=== PATIENT | male | born 1975 | race Caucasian/White ===

== ENCOUNTER 2020-06-18 15:39 | Inpatient (IN) ==
[2020-06-18] MEDS ORDERED: IOPAMIDOL 100 ML BOTTLE IV ONE (15:40)
[2020-06-18] MEDS ORDERED: HYDROmorphone 1 MG/ML SYRINGE IV ONE (16:32)
[2020-06-18] MEDS ORDERED: ONDANSETRON 4 MG/2 ML VIAL IV ONE (16:32)
[2020-06-18] MEDS ORDERED: 0.9 % SODIUM CHLORIDE 1,000 ML IV ONE (16:32)
[2020-06-18] MEDS ORDERED: POTASSIUM CHLORIDE 40 MEQ in DEXTROSE 5% IN WATER 500 ML IV ONE (16:56)
--- NOTE | 2020-06-18 17:01 | Emergency Department Note ---
Abdominal Pain HPI General Chief Complaint: Abdominal Pain Stated Complaint: N/V/D abdominal pain Time Seen by Provider: 06/18/20 15:47 Source: patient Mode of arrival: ambulatory Limitations: no limitations History of Present Illness HPI Narrative: Narrative: 44-year-old male presents with abdominal pain and intractable nausea and vomiting. Onset 3 days ago. He was seen in the ER at [facility] yesterday. They hydrated and given some nausea medication and diagnosed him with gastroenteritis. He returned to the ER today complaining of increased abdominal pain and continued nausea and vomiting. They did do lab work there this afternoon at about 1335 which showed a white blood cell count of 2.9, hemoglobin of 13.4, hematocrit of 40.4, creatinine 1.06, sodium 136, potassium 3.19 and otherwise unremarkable. They did not have CT available and so he was transferred here to our facility for further work-up in the emergency department. He denies fever or chills. States when he was treated yesterday he was better for a few hours and then got worse again. Decreased appetite which she relates to the pain in his abdomen. He denies having any abdominal surgeries in the past. States 8 to 10 years ago he did have a bowel obstruction and he was admitted to the hospital at [facility] but it resolved on its own with rest. Has not had any problems since then. No ill contacts. No cough or cold symptoms. Denies any abdominal surgeries in the past. States he is on Eliquis, low-dose for prior history of atrial fibrillation. He had an ablation couple years ago and has had no subsequent episodes of atrial fib however they wanted to keep him on the low-dose Eliquis. He is not sure what the dosing is and we are trying to get medication records and further past medical history from the clinic out in [place]. Related Data Home Medications Medication Instructions Recorded Confirmed albuterol sulfate 90 mcg/actuation 1 inh INHALATION .UNKNOWN g 10/08/19 06/09/20 aerosol inhaler ascorbic acid (vitamin C) 1,000 mg 1 g PO .UNKNOWN tab 10/08/19 06/09/20 tablet diclofenac sodium 75 mg 75 mg PO .UNKNOWN tab 10/08/19 06/09/20 tablet,delayed release albuterol sulfate 90 mcg/actuation 2 puff INHALATION Q6H PRN 02/05/20 06/09/20 aerosol inhaler amlodipine 2.5 mg tablet 2.5 mg PO QDAY tab 02/05/20 06/09/20 apixaban 5 mg tablet 5 mg PO BID tab 02/05/20 06/09/20 flaxseed oil 1,000 mg capsule See Rx Instructions PO QDAY 02/05/20 06/09/20 fluoxetine 40 mg capsule 80 mg PO QDAY cap 02/05/20 06/09/20 folic acid 1 mg tablet 1 mg PO QDAY tab 02/05/20 06/09/20 lisinopril 20 mg tablet 20 mg PO QPM tab 02/05/20 06/09/20 magnesium oxide 400 mg PO QDAY cap 02/05/20 06/09/20 montelukast 10 mg tablet 10 mg PO QPM tab 02/05/20 06/09/20 oxcarbazepine 300 mg tablet 600 mg PO BID tab 02/05/20 06/09/20 simvastatin 40 mg tablet 40 mg PO QPM tab 02/05/20 06/09/20 tamsulosin 0.4 mg capsule 0.4 mg PO QDAY cap 02/05/20 06/09/20 ferrous sulfate 325 mg (65 mg 325 mg PO QDAY 03/07/20 06/09/20 iron) tablet Previous Rx's Medication Instructions Recorded meloxicam 15 mg tablet 15 mg PO QDAY #30 tab 04/06/20 cyclobenzaprine 10 mg tablet 10 mg PO TID PRN #90 tab MDD 3 06/08/20 naloxone 4 mg/actuation nasal spray 1 spray INTRANASAL Q2-3M PRN #2 06/08/20 each oxycodone-acetaminophen 10 mg-325 1 tab PO Q4-6H PRN #120 tab MDD 4 06/08/20 mg tablet Allergies Allergy/AdvReac Type Severity Reaction Status Date / Time gluten AdvReac Mild Diarrhea Verified 06/09/20 10:09 iodine AdvReac Mild flushing Verified 06/09/20 10:09 methadone AdvReac Mild ITCHING, Verified 06/09/20 10:09 Tachycardia morphine AdvReac Mild N/V Verified 06/09/20 10:09 Review of Systems ROS ROS Narrative: Narrative: All systems ED: reviewed and negative except as stated. PFSH Narrative Patient History Narrative: Narrative: Medical/Surgical/Family History All Active Problems (Updated 06/18/20 @ 17:06 by AUDREY Givens) Small bowel obstruction (Acute) Abdominal pain (Acute) Vomiting (Acute) Obstructive sleep apnea (Acute) Lumbar stenosis with neurogenic claudication (Chronic) History of inguinal hernia repair (Acute 06/17/86) History of nasal surgery (Chronic 11/16/19) History of left knee surgery (Chronic) History of bilateral carpal tunnel release (Chronic) History of arthroscopy of shoulder (Chronic) Anxiety (Chronic) intermodal customer service (current) use of opiate analgesic (Chronic) History of kidney stones (Chronic) Chronic diarrhea (Chronic) Vitamin D deficiency (Chronic) Thalassemia (Chronic) Low back pain (Chronic) Paroxysmal atrial fibrillation (Chronic) History of myocardial infarction (Chronic) Other seizures (Acute) Spinal stenosis, lumbar region without neurogenic claudication (Acute) Obesity, unspecified (Acute) Opioid dependence (Acute) Chronic pain (Acute) Asthma (Chronic) Hypertension (Chronic) Chronic atrial fibrillation (Chronic) Sleep apnea (Chronic) Hyperlipidemia (Chronic) Heart disease (Chronic) Blindness of left eye (Chronic) Bipolar disorder (Chronic) Metabolic syndrome (Chronic) Macular degeneration (Chronic) Osteoarthritis (Chronic) Morbid obesity (Chronic) Bronchitis (Chronic) Headache (Chronic) Radiculopathy, lumbar region (Chronic) Medical History (Updated 06/18/20 @ 17:06 by AUDREY Gviens) Anxiety (Chronic) Asthma (Chronic) Atrial fibrillation (Acute) Bipolar disorder (Chronic) Blindness of left eye (Chronic) Bronchitis (Chronic) Chronic atrial fibrillation (Chronic) Chronic diarrhea (Chronic) Chronic pain (Acute) Headache (Chronic) Heart disease (Chronic) History of kidney stones (Chronic) History of myocardial infarction (Chronic) Hyperlipidemia (Chronic) Hypertension (Chronic) detention (current) use of opiate analgesic (Chronic) Low back pain (Chronic) Lumbar stenosis with neurogenic claudication (Chronic) Macular degeneration (Chronic) Metabolic syndrome (Chronic) Morbid obesity (Chronic) Obesity, unspecified (Acute) Obstructive sleep apnea (Acute) Opioid dependence (Acute) For pain control of benign origin Osteoarthritis (Chronic) Other seizures (Acute) Paroxysmal atrial fibrillation (Chronic) Radiculopathy, lumbar region (Chronic) Sleep apnea (Chronic) Spinal stenosis, lumbar region without neurogenic claudication (Acute) Thalassemia (Chronic) Vitamin D deficiency (Chronic) Surgical History History of arthroscopy of shoulder (Chronic) History of bilateral carpal tunnel release (Chronic) History of inguinal hernia repair (Acute 06/17/86) History of left knee surgery (Chronic) History of nasal surgery (Chronic 11/16/19) cysts removed History of surgery (Chronic) LESI #3 L4-5 w/sed 08/19/2019 LESI #2 Rt. L4-5 w/sed 06/23/2019 LESI #1 L4-5 w/sed 04/20/2019 Family History Grandmother Diabetes mellitus Maternal Substance abuse Maternal and paternal Mother Hypertensive disorder COPD (chronic obstructive pulmonary disease) Suicide Mental disorder Grandfather Diabetes mellitus Maternal Hypertensive disorder Paternal Substance abuse Maternal and paternal Hyperlipidemia Maternal and paternal Cerebrovascular accident Maternal and paternal Father Substance abuse Mental disorder Brother Substance abuse Mental disorder Sister Mental disorder Social History Smoking Status: Former smoker Alcohol Intake Frequency: does not drink Substance Use: does not use Exam Narrative Narrative: Narrative: General Limitations: no limitations General appearance: Present alert and obese Head Head: Present atraumatic and normocephalic Eye Eye: Present normal appearance; Absent conjunctival injection ENT ENT: Present mucous membranes moist Neck Neck: Present normal inspection and trachea midline; Absent lymphadenopathy Chest Chest: Present symmetric chest wall rise Respiratory Respiratory: Present normal lung sounds bilaterally; Absent respiratory distress, rales/crackles, wheezes, stridor and accessory muscle use Adbominal Abdominal: Present soft, distention (large, round, distended), tenderness (difuse) and hypoactive bowel sounds; Absent guarding and rebound Neurological Neurological: Present alert and oriented X3 Psychiatric Psychiatric: Present normal affect and normal mood Skin Skin: Present warm (WNL), dry, intact and normal color Course Course Course Narrative: Please see labs from [facility] from today. At [address] I did speak with Dr[address] Addison Shetty surgeon on-call due to small bowel obstruction, evident on CT.. He is excepting this patient. He would like me to put in ED transition orders which I will do. We he would also like an NG placed and 40 mEq of potassium IV which we have ordered. Patient is agreeable. Vital Signs Vital signs: Vital Signs Temperature 98 F 06/18/20 15:40 Pulse Rate 106 H 06/18/20 15:40 Respiratory Rate 18 06/18/20 15:40 Blood Pressure 157/86 06/18/20 15:40 Pulse Oximetry (%) 100 06/18/20 15:40 Temperature 98 F 06/18/20 15:40 Pulse Rate 106 H 06/18/20 15:40 Respiratory Rate 18 06/18/20 15:40 Blood Pressure 157/86 06/18/20 15:40 Pulse Oximetry (%) 100 06/18/20 15:40 MDM MDM Narrative Medical decision making narrative: Narrative: Lab Data Lab results reviewed: Yes I reviewed the patient's lab results. 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: Yes Clinical Impression: Small bowel obstruction, Abdominal pain, Vomiting Patient Disposition: Xfer As Inpt (TS) Condition: Fair Follow up with: Desean Bell MD [Primary Care Provider] - Noe Xie MD [Physician] - Prescriptions: No Action meloxicam 15 mg tablet 15 mg PO QDAY Qty: 30 RF: 2 diclofenac sodium 75 mg tablet,delayed release (DR/EC) 75 mg PO .UNKNOWN RF: 0 albuterol sulfate [Ventolin HFA] 90 mcg/actuation HFA aerosol inhaler 1 inh INHALATION .UNKNOWN RF: 0 ascorbic acid (vitamin C) 1,000 mg tablet 1 g PO .UNKNOWN RF: 0 amlodipine 2.5 mg tablet 2.5 mg PO QDAY RF: 0 Eliquis 5 mg tablet 5 mg PO BID RF: 0 fluoxetine [Prozac] 40 mg capsule 80 mg PO QDAY RF: 0 folic acid 1 mg tablet 1 mg PO QDAY RF: 0 lisinopril 20 mg tablet 20 mg PO QPM RF: 0 magnesium oxide 400 mg magnesium capsule 400 mg PO QDAY RF: 0 montelukast 10 mg tablet 10 mg PO QPM RF: 0 oxcarbazepine 300 mg tablet 600 mg PO BID RF: 0 simvastatin 40 mg tablet 40 mg PO QPM RF: 0 tamsulosin [Flomax] 0.4 mg capsule 0.4 mg PO QDAY RF: 0 flaxseed oil [Oxford-3 Flaxseed Oil] 1,000 mg capsule See Rx Instructions PO QDAY RF: 0 albuterol sulfate [Ventolin HFA] 90 mcg/actuation HFA aerosol inhaler 2 puff INHALATION Q6H PRN (Reason: Wheezing) RF: 0 oxycodone-acetaminophen 10-325 mg tablet 1 tab PO Q4-6H MDD 4 PRN (Reason: pain) Qty: 120 RF: 0 cyclobenzaprine 10 mg tablet 10 mg PO TID MDD 3 PRN (Reason: muscle spasm) Qty: 90 RF: 2 naloxone 4 mg/actuation spray,non-aerosol 1 spray INTRANASAL Q2-3M PRN (Reason: opioid overdose) Qty: 2 RF: 0 ferrous sulfate [FeroSul] 325 mg (65 mg iron) tablet 325 mg PO QDAY RF: 0
[2020-06-18] MEDS ORDERED: PROMETHAZINE 25 MG/ML VIAL IM PRN ×2 (17:08→23:57)
[2020-06-18] MEDS ORDERED: ONDANSETRON 4 MG/2 ML VIAL IV PRN ×2 (17:08→23:57)
[2020-06-18] MEDS ORDERED: POTASSIUM CHLORIDE 20 MEQ/10 ML VIAL IV ONE (17:13)
[2020-06-18] MEDS: HYDROmorphone 1 MG/ML SYRINGE IV PRN ×2 (18:09→20:34)
[2020-06-18] MEDS ORDERED: cefTRIAXone 2 GM in DEXTROSE 5% IN WATER 50 ML IV ONE (20:40)
[2020-06-18] MEDS ORDERED: metroNIDAZOLE 500 MG/100 ML BAG IV ONE ×2 (20:42→20:57)
[2020-06-18] MEDS ORDERED: ACETAMINOPHEN 1,000 MG/100 ML BAG IV ONE (20:42)
--- NOTE | 2020-06-18 20:46 | General Surg History&Physical ---
HPI History of Present Illness Patient information: Note initiated : 06/18/20 at 8:44 pm Service Date, if different from initiated Date: [] Patient: Phuc Calixto 44 y/o M admitted on 06/18/20 for N/V/D abdominal pain. Chief Complaint: abd pain History of present illness: 44 yo man with chronic pain and BMI 44 s/p laproscopic umbilical hernia repair and open R inguinal repair with hx of afib s/p ablation on apixaban presents with SBO. Was in usual state of health when started to have nausea and vomiting 2 days ago. Initially with associated diarrhea. The diarrhea has resolved but today with marked and progressive pain. Seen at OSH where WBC ominously low at 2.9 transfered for imaging. In our ED NGT placed with 2L of bilious output. CT showed dialated loops or bowel with mid jejunal transition point deep in abdomen near level of umbilicus. Upon my exam pt in marked pain, unable to get comfortable. Denies episodes of pain similar to this. last took apixaban 48hrs ago Constitutional Constitutional: Present snoring EENT Nose, mouth and throat: Present dry mouth Cardiovascular Cardiovascular: Present irregular heart rhythm Respiratory Respiratory: Absent cough Gastrointestinal Gastrointestinal: Present abdominal pain Psychiatric Psychiatric: Absent visual hallucinations Endocrine Endocrine: Absent polyuria Hematologic/Lymphatic Hematologic/Lymphatic: Absent easy bleeding PFSH PFSH All Active Problems (Updated 06/18/20 @ 21:13 by Noe Xie MD) Small bowel obstruction (Acute) Abdominal pain (Acute) Vomiting (Acute) Obstructive sleep apnea (Acute) Lumbar stenosis with neurogenic claudication (Chronic) History of inguinal hernia repair (Acute 06/17/86) History of nasal surgery (Chronic 11/16/19) History of left knee surgery (Chronic) History of bilateral carpal tunnel release (Chronic) History of arthroscopy of shoulder (Chronic) Anxiety (Chronic) snf (current) use of opiate analgesic (Chronic) History of kidney stones (Chronic) Chronic diarrhea (Chronic) Vitamin D deficiency (Chronic) Thalassemia (Chronic) Low back pain (Chronic) Paroxysmal atrial fibrillation (Chronic) History of myocardial infarction (Chronic) Other seizures (Acute) Spinal stenosis, lumbar region without neurogenic claudication (Acute) Obesity, unspecified (Acute) Opioid dependence (Acute) Chronic pain (Acute) Asthma (Chronic) Hypertension (Chronic) Chronic atrial fibrillation (Chronic) Sleep apnea (Chronic) Hyperlipidemia (Chronic) Heart disease (Chronic) Blindness of left eye (Chronic) Bipolar disorder (Chronic) Metabolic syndrome (Chronic) Macular degeneration (Chronic) Osteoarthritis (Chronic) Morbid obesity (Chronic) Bronchitis (Chronic) Headache (Chronic) Radiculopathy, lumbar region (Chronic) Medical History (Updated 06/18/20 @ 21:13 by Noe Xie MD) Anxiety (Chronic) Asthma (Chronic) Atrial fibrillation (Acute) Bipolar disorder (Chronic) Blindness of left eye (Chronic) Bronchitis (Chronic) Chronic atrial fibrillation (Chronic) Chronic diarrhea (Chronic) Chronic pain (Acute) Headache (Chronic) Heart disease (Chronic) History of kidney stones (Chronic) History of myocardial infarction (Chronic) Hyperlipidemia (Chronic) Hypertension (Chronic) snf (current) use of opiate analgesic (Chronic) Low back pain (Chronic) Lumbar stenosis with neurogenic claudication (Chronic) Macular degeneration (Chronic) Metabolic syndrome (Chronic) Morbid obesity (Chronic) Obesity, unspecified (Acute) Obstructive sleep apnea (Acute) Opioid dependence (Acute) For pain control of benign origin Osteoarthritis (Chronic) Other seizures (Acute) Paroxysmal atrial fibrillation (Chronic) Radiculopathy, lumbar region (Chronic) Sleep apnea (Chronic) Spinal stenosis, lumbar region without neurogenic claudication (Acute) Thalassemia (Chronic) Vitamin D deficiency (Chronic) Surgical History History of arthroscopy of shoulder (Chronic) History of bilateral carpal tunnel release (Chronic) History of inguinal hernia repair (Acute 06/17/86) History of left knee surgery (Chronic) History of nasal surgery (Chronic 11/16/19) cysts removed History of surgery (Chronic) LESI #3 L4-5 w/sed 08/19/2019 LESI #2 Rt. L4-5 w/sed 06/23/2019 LESI #1 L4-5 w/sed 04/20/2019 Family History Grandmother Diabetes mellitus Maternal Substance abuse Maternal and paternal Mother Hypertensive disorder COPD (chronic obstructive pulmonary disease) Suicide Mental disorder Grandfather Diabetes mellitus Maternal Hypertensive disorder Paternal Substance abuse Maternal and paternal Hyperlipidemia Maternal and paternal Cerebrovascular accident Maternal and paternal Father Substance abuse Mental disorder Brother Substance abuse Mental disorder Sister Mental disorder Social History marital status: unknown smoking status: Former smoker smoking status stop date: 06/17/02 alcohol intake frequency: does not drink substance use type: does not use MEDS/ALLERGIES Home Medications and Allergies Home Medications Medication Instructions Recorded Confirmed Type albuterol sulfate 90 mcg/actuation 1 inh INHALATION .UNKNOWN g 10/08/19 06/18/20 History aerosol inhaler ascorbic acid (vitamin C) 1,000 mg 1 g PO DAILY tab 10/08/19 06/18/20 History tablet diclofenac sodium 75 mg 75 mg PO .UNKNOWN tab 10/08/19 06/18/20 History tablet,delayed release albuterol sulfate 90 mcg/actuation 2 puff INHALATION Q6H PRN 02/05/20 06/18/20 History aerosol inhaler amlodipine 2.5 mg tablet 2.5 mg PO QDAY tab 02/05/20 06/18/20 History apixaban 5 mg tablet 5 mg PO BID tab 02/05/20 06/18/20 History flaxseed oil 1,000 mg capsule See Rx Instructions PO QDAY 02/05/20 06/18/20 History fluoxetine 40 mg capsule 80 mg PO QDAY cap 02/05/20 06/18/20 History folic acid 1 mg tablet 1 mg PO QDAY tab 02/05/20 06/18/20 History lisinopril 20 mg tablet 20 mg PO QPM tab 02/05/20 06/18/20 History magnesium oxide 400 mg PO QDAY cap 02/05/20 06/18/20 History montelukast 10 mg tablet 10 mg PO QPM tab 02/05/20 06/18/20 History oxcarbazepine 300 mg tablet 600 mg PO BID tab 02/05/20 06/18/20 History simvastatin 40 mg tablet 40 mg PO QPM tab 02/05/20 06/18/20 History tamsulosin 0.4 mg capsule 0.4 mg PO QDAY cap 02/05/20 06/18/20 History ferrous sulfate 325 mg (65 mg 325 mg PO QDAY 03/07/20 06/18/20 History iron) tablet meloxicam 15 mg tablet 15 mg PO QDAY #30 tab 10/21/20 01/02/21 Rx cyclobenzaprine 10 mg tablet 10 mg PO TID PRN #90 tab MDD 3 06/08/20 06/18/20 Rx naloxone 4 mg/actuation nasal spray 1 spray INTRANASAL Q2-3M PRN #2 06/08/20 06/18/20 Rx each oxycodone-acetaminophen 10 mg-325 1 tab PO Q4-6H PRN #120 tab MDD 4 06/08/20 06/18/20 Rx mg tablet Allergies Allergy/AdvReac Type Severity Reaction Status Date / Time gluten AdvReac Mild Diarrhea Verified 06/18/20 19:29 iodine AdvReac Mild flushing Verified 06/18/20 19:29 methadone AdvReac Mild ITCHING, Verified 06/18/20 19:29 Tachycardia morphine AdvReac Mild N/V Verified 06/18/20 19:29 Physical Examination Vital Signs Vital signs: Temp Pulse Resp BP Pulse Ox 36.6 C 114 H 37 H 150/86 94 06/18/20 18:51 06/18/20 18:16 06/18/20 18:51 06/18/20 18:16 06/18/20 18:51 General physical appearance General physical exam: other (Looks in significant pain, grimicing, elevated respiratory rate. MMM dry, NGT in place draining bilious material. no LAD, LcTAB, RRR no MGR, abd rotund markedly distended, tympanitic, no BS, markedly tender, in epigasrium and periumbilial area. + bed shake test, + reflexive guarding. ) Results Labs Labs: All other labs normal. A/P Assessment and plan (1) Small bowel obstruction: Status: Acute Comment: 44 yo man with 2 days of SBO and now with acute abdomen in setting of lymphopenia and elevated RR diagnostic of sepsis. Source intraabdominal. Plan: Urgent exploratory laparotomy Give firm abdomen, distended bowel and large girth - I do not think there is domain for laperoscopy Possible SBR Strong consideration of mesh onlay for hernia prophylaxis depending on details of case. Risk of bleeding, infection, injury to structures, hernia formation, mesh infection all discussed. Pt is in marked pain and quite eager to go to surgery. Noe Xie MD Surgery Time Spent With Patient Time: Total time spent is greater than 50% in coordination of care (as docum ented) at patient's floor/unit and/or counseling patient:
[2020-06-18] MEDS ORDERED: cefTRIAXone 1 GM VIAL ONE (20:56)
[2020-06-18] MEDS ORDERED: 0.9 % SODIUM CHLORIDE 250 ML IV SCH (21:00)
[2020-06-18] MEDS ORDERED: SUGAMMADEX SODIUM 200 MG/2 ML VIAL IV ONE (22:10)
[2020-06-18] MEDS ORDERED: HYDROmorphone* 2 MG/ML VIAL ONE (22:10)
[2020-06-18] MEDS ORDERED: LIDOCAINE HCL/PF 100 MG/5 ML SYRINGE IV ONE (22:10)
[2020-06-18] MEDS ORDERED: SUCCINYLCHOLINE 20 MG/ML ML IV ONE (22:10)
[2020-06-18] MEDS ORDERED: PHENYLEPHRINE 10 MG/ML VIAL ONE (22:10)
[2020-06-18] MEDS ORDERED: ROCURONIUM 10 MG/ML ML IV ONE (22:10)
[2020-06-18] MEDS ORDERED: DEXAMETHASONE 10 MG/ML VIAL ONE (22:10)
[2020-06-18] MEDS ORDERED: ONDANSETRON 4 MG/2 ML VIAL ONE (22:10)
[2020-06-18] MEDS ORDERED: PROPOFOL 200 MG/20 ML VIAL IV ONE (22:10)
[2020-06-18] MEDS ORDERED: fentaNYL 250 MCG/5 ML VIAL IV ONE (22:10)
[2020-06-18] MEDS ORDERED: KETAMINE 100 MG/ML ML ONE (22:10)
[2020-06-18] MEDS ORDERED: VANCOMYCIN 1 GM VIAL TOPICAL SCH (23:45)
[2020-06-18] MEDS ORDERED: LACTATED RINGERS 1,000 ML IV SCH (23:45)
[2020-06-18] MEDS ORDERED: BUPIVACAINE W/EPI 0.25% 50 ML VIAL IJ ONE (23:56)
[2020-06-18] MEDS ORDERED: MEPERIDINE 50 MG/ML INJECTION IM PRN (23:57)
[2020-06-18] MEDS ORDERED: diphenhydrAMINE 50 MG/ML VIAL IV PRN (23:57)
[2020-06-18] MEDS ORDERED: KETOROLAC 30 MG/ML VIAL IV PRN (23:57)
[2020-06-18] MEDS ORDERED: PROMETHAZINE 25 MG/ML VIAL IV PRN (23:57)
[2020-06-18] MEDS ORDERED: NALOXONE HCL 0.4 MG/ML VIAL IV PRN (23:57)
[2020-06-18] MEDS ORDERED: HYDROmorphone 0.5 MG/0.5 ML SYRINGE IV PRN (23:57)
[2020-06-18] MEDS ORDERED: fentaNYL 100 MCG/2 ML VIAL IV PRN (23:57)
[2020-06-18] MEDS ORDERED: MEPERIDINE 25 MG/ML SYRINGE IV PRN (23:57)
[2020-06-18] MEDS ORDERED: IPRATROPIUM/ALBUTEROL 3 ML AMPUL.NEB NEB PRN (23:57)
[2020-06-18] MEDS ORDERED: LACTATED RINGERS 250 ML IV PRN (23:57)
--- NOTE | 2020-06-19 01:38 | Brief Operative Note ---
Brief Operative Note Date of procedure: 06/19/20 Pre-op diagnosis: acute abdomen, sepsis, small bowel obstruction Post-op diagnosis: same Procedure: 1) Diagnostic laperotomy 2) MIGUELITO 3) Placement of prophylactic mesh onlay Grafts/Implants: Yes Anesthesia: GETA Findings: 1)large dialated bowel with mid jejunal transition point 2)transition point associated with small adhesion 3)placement of 20x6cm strip of prophylactic mesh - onlay - heavyweight polypro bard mesh - due to abdominal obesity with BMI of 45. Complications: none Surgeon: Noe Xie Estimated blood loss (cc): 10 Specimens Removed/Pathology: none sent Condition: stable Disposition: PACU
[2020-06-19] MEDS ORDERED: ACETAMINOPHEN 160 MG/5 ML ORAL.SOL PO SCH (02:26)
[2020-06-19] MEDS ORDERED: PROMETHAZINE 50 MG/ML AMPUL IM PRN (02:26)
[2020-06-19] MEDS: LACTATED RINGERS 1,000 ML IV SCH ×2 (02:30→17:09)
[2020-06-19] MEDS: metroNIDAZOLE 500 MG/100 ML BAG IV SCH ×4 (03:07→22:35)
[2020-06-19] MEDS: GABAPENTIN 400 MG CAPSULE PO SCH ×3 (05:18→17:07)
[2020-06-19] MEDS: METHOCARBAMOL 500 MG TABLET PO SCH ×3 (05:19→17:07)
[2020-06-19] MEDS ORDERED: HEPARIN 5,000 UNIT/ML VIAL SQ SCH (06:00)
[2020-06-19] MEDS: HYDROmorphone 1 MG/ML SYRINGE IV PRN ×7 (06:30→20:51)
[2020-06-19] MEDS ORDERED: HYDROmorphone 1 MG/ML SYRINGE ONE (06:36)
[2020-06-19] MEDS: IPRATROPIUM/ALBUTEROL 3 ML AMPUL.NEB NEB SCH ×3 (07:23→19:15)
[2020-06-19] MEDS ORDERED: IPRATROPIUM/ALBUTEROL 3 ML AMPUL.NEB NEB ONE (07:26)
[2020-06-19 07:40] LABS: Blood Urea Nitrogen 17 mg/dL (6-20); Calcium 9.1 mg/dL (8.6-10.4); Carbon Dioxide 24 mmol/L (22-30); Chloride 102 mmol/L (96-108); Glomerular Filtration Rate 102; Glucose 124 mg/dL (70-105)
[2020-06-19 08:28] LABS: Basophils # (Auto) 0 K/mcL (0.00-0.20); Basophils % (Auto) 0 % (0.0-2.0); Eosinophils # (Auto) 0 K/mcL (0.00-0.70); Eosinophils % (Auto) 0 % (0.0-7.0); Hematocrit 40.5 % (41.0-55.0); Hemoglobin 12.7 g/dL (13.5-16.5); Lymphocytes # (Auto) 0.25 K/mcL (1.50-4.80); Lymphocytes % (Auto) 7.8 % (15.0-49.0); Mean Corpuscular HGB Conc 31.4 g/dL (31.0-36.0); Mean Platelet Volume 10.1 fL (7.4-10.4); Monocytes # (Auto) 0.56 K/mcL (0.10-0.90); Monocytes % (Auto) 17.4 % (1.0-12.0); Neutrophils % (Auto) 74.8 % (38.0-78.0); Platelet Count 259 K/mcL (140-440); RBC 5.33 M/mcL (4.50-5.90); Red Cell Distribution Width 16.2 % (11.5-14.5); WBC 3.2 K/mcL (4.5-11.0)
[2020-06-19] MEDS: ONDANSETRON 4 MG/2 ML VIAL IV PRN ×3 (08:37→20:36)
--- NOTE | 2020-06-19 09:03 | Cat Scan Report ---
History: Diffuse abdominal pain with nausea and vomiting TECHNIQUE: The patient was imaged lung intravenous contrast scanning during the portal venous phase from the diaphragm to the symphysis pubis. Sagittal and coronal reformats were created. The radiation exposure was limited using dose reduction technology. FINDINGS: The lung bases are clear and there is no pleural effusion. The heart size is normal. There is mild generalized fatty infiltration throughout the liver. No liver mass is present. The spleen is normal in size and homogeneous. The gallbladder and bile ducts are normal. There is no mass or inflammation the pancreas. The adrenals are normal and symmetric. There were a few nonobstructing calyceal stones in both kidneys. They measure up to 6 mm. There is no hydronephrosis. The renal cortex is normal in thickness without evidence of scar or inflammation. The ureters are decompressed. Urinary bladder is decompressed and there are no stones within the lumen. The stomach and proximal small intestine are abnormally distended. There are numerous air-fluid levels within the small intestine. The jejunum measures up to 5.8 cm in transverse dimension. The wall is not abnormally thickened. There is a gradual transition to normal caliber small bowel in the left mid pelvis. No mass, internal hernia or volvulus are seen in the region of transition, to explain the bowel obstruction. The ileum is decompressed. At the level of the ileocecal valve there are some low-attenuation solid tissue protruding into the lumen of the cecum. This is more likely fecal material or thick intestinal secretions rather than a tumor. If this were an obstructing tumor, the adjacent distal ileum should be dilated, which it is not. Distal to the cecum, the large intestine is decompressed and normal. The appendix is noninflamed. No ascites or free intra-abdominal air present. Aorta is normal in caliber. There are a few small plaques in the distal aorta. Celiac and superior mesenteric arteries and visualized portion of the inferior mesenteric artery are patent, without evidence of thrombosis. Bilateral fat-containing inguinal hernias are present. No other hernia is present. There is arthritis and disc degeneration in the thoracic and lumbar spine with the greatest degeneration at L5-S1. IMPRESSION: Small bowel obstruction in the mid abdomen of undetermined etiology. Kianna Glez was called with the results Interpreted and Authenticated by: Dequan Jones 06/19/20
[2020-06-19] MEDS: TAMSULOSIN 0.4 MG CAPSULE PO SCH (10:17)
[2020-06-19] MEDS: LACTOBACILLUS 1 CAPSULE PO SCH ×2 (10:17→20:20)
[2020-06-19] MEDS: POLYETHYLENE GLYCOL 3350 17 GM PACKET PO SCH (10:18)
[2020-06-19] MEDS: FLUoxetine HCL 20 MG CAPSULE PO SCH (10:18)
[2020-06-19] MEDS: Oxcarbazepine [Trileptal] 600 mg Tab PO SCH ×2 (10:18→20:21)
[2020-06-19] MEDS: CELECOXIB 200 MG CAPSULE PO SCH ×2 (10:30→20:20)
[2020-06-19] MEDS: LISINOPRIL 10 MG TABLET PO SCH (10:30)
[2020-06-19] MEDS: amLODIPine 5 MG TABLET PO SCH (10:30)
[2020-06-19] MEDS ORDERED: MAGNESIUM SULFATE 8.12 MEQ/2 ML VIAL IV ONE (10:40)
[2020-06-19] MEDS ORDERED: MAGNESIUM SULFATE 2 GM/50 ML BAG IV ONE (11:00)
--- NOTE | 2020-06-19 11:15 | General Surgery Progress Note ---
SUBJECTIVE Subjective Patient information: Note initiated : 06/19/20 at 11:08 am Service Date, if different from initiated Date: [] Patient: Phuc Calixto 44 y/o M admitted on 06/18/20 for N/V/D abdominal pain. Chief Complaint: SBO S: feeling substantially improved with pain after surgery, no longer in distress. moderate abdominal pain, No flatus, no bm, some burping. O: 38.1 123 142/85 96 on 2L NC UOP 1.8 L since surgery Looking much improved, comfortably, LCTAB Regular tacky, strong radial pulse NGT in place with dark bilious output. Rotund distended abdomen. tympanitic. Midly tender - improved over prior exam. No rebound neg bed shake, dressings with minimal strike through Periphery warm Jacinto with moderately dark clear yellow urine A/P 44 yo man POD0 after exlap for SBO with acute abdomen, single small adhesive band at transition point lysed. Prophylatic mesh placement as onlay. Now much improved. No bowel function yet. Plan: Multimodal pain regiment: APAP, methocarbamol, gabapentin, celecoxib, PRN hydromorphone - adiquate continue NGT on LWIS, OK to clamp for 1hr with meds Hm SSRI and bp meds Day 2/7 of abx for inital presentation of sepsis Probiotic FEN LR - 75, E - replete mag, NPO, meds with sips Proph: Miralax, Enox 40mg BID PT for gait training Noe Xie MD Surgery Constitutional Vitals: Vital Signs Temp Pulse Resp BP Pulse Ox 38.1 C H 123 H 18 142/85 96 06/19/20 07:16 06/19/20 07:27 06/19/20 07:27 06/19/20 07:16 06/19/20 07:25 Period Temp Pulse Resp BP Sys/George Pulse Ox Last 24 Hr 36.6 C-38.4 C 97-123 16-37 120-176/73-104 88-100 Intake and Output 06/18/20 06/19/20 06/19/20 21:59 05:59 13:59 Intake Total 217 5565 100 Output Total 2400 3400 375 Balance -2183 2165 -275 Weight 145.15 kg Intake & Output: Intake & Output 06/18/20 06/19/20 06/19/20 21:59 05:59 13:59 Intake Total 217 5565 100 Output Total 2400 3400 375 Balance -2183 2165 -275 Weight 145.15 kg Intake: IV 217 1565 100 Sodium Chloride 0.9% 1,000 ml @ 1000 Wide Open IV B[facility]US ONE Rx#: [id number] Lactated Ringers 1,000 ml @ 20 12 mls/hr IV .Q24H [facility] Rx#: [id number] Potassium Chloride 40 Meq In 217 303 Dextrose 5% in Water 500 ml @ 130 mls/hr IV ONCE ONE Rx#: [id number] Rocephin 2 gm In Dextrose 5% in 50 Water 50 ml @ 100 mls/hr IV ONCE ONE Rx#:[id number] Tube Feeding 0 0 0 IV - Manual Only 4000 Output: Gastric Drainage 2400 1600 0 Right Nare 2400 1600 0 Urine Catheter Amount 1800 Void Amount 375 Other: Meal Breakfast Percent of Meal Consumed NPO Urine Appearance Clear Clear Uretheral (Jacinto) Clear Clear Urine Color Dark Yellow Dark Yellow Uretheral (Jacinto) Dark Yellow Dark Yellow Urine Odor Normal A/P Time Spent With Patient Time: Total time spent is greater than 50% in coordination of care (as documented) at patient's floor/unit and/or counseling patient:
[2020-06-19] MEDS: cefTRIAXone 2 GM in DEXTROSE 5% IN WATER 50 ML IV SCH (11:35)
[2020-06-19] MEDS: ACETAMINOPHEN 160 MG/5 ML ORAL.SOL PO SCH ×2 (12:42→17:08)
[2020-06-19] MEDS: ENOXAPARIN 40 MG/0.4 ML SYRINGE SQ SCH (20:20)
[2020-06-19] MEDS: MONTELUKAST 10 MG TABLET PO SCH (20:20)
[2020-06-19] MEDS: SIMVASTATIN 40 MG TABLET PO SCH (20:20)
[2020-06-20] MEDS: HYDROmorphone 1 MG/ML SYRINGE IV PRN ×8 (00:05→22:19)
[2020-06-20] MEDS: GABAPENTIN 400 MG CAPSULE PO SCH ×4 (00:16→17:39)
[2020-06-20] MEDS: ACETAMINOPHEN 160 MG/5 ML ORAL.SOL PO SCH ×4 (00:16→18:31)
[2020-06-20] MEDS: METHOCARBAMOL 500 MG TABLET PO SCH ×4 (00:16→17:39)
[2020-06-20] MEDS: IPRATROPIUM/ALBUTEROL 3 ML AMPUL.NEB NEB SCH ×4 (01:15→19:03)
[2020-06-20] MEDS: metroNIDAZOLE 500 MG/100 ML BAG IV SCH ×3 (06:05→22:21)
[2020-06-20] MEDS: LACTATED RINGERS 1,000 ML IV SCH ×3 (06:05→22:20)
[2020-06-20 07:53] LABS: Blood Urea Nitrogen 15 mg/dL (6-20); Calcium 9.7 mg/dL (8.6-10.4); Carbon Dioxide 26 mmol/L (22-30); Chloride 101 mmol/L (96-108); Glomerular Filtration Rate 113; Glucose 100 mg/dL (70-105)
[2020-06-20 08:27] LABS: Basophils # (Auto) 0.01 K/mcL (0.00-0.20); Basophils % (Auto) 0.2 % (0.0-2.0); Eosinophils # (Auto) 0.02 K/mcL (0.00-0.70); Eosinophils % (Auto) 0.5 % (0.0-7.0); Hematocrit 39.8 % (41.0-55.0); Hemoglobin 12.3 g/dL (13.5-16.5); Lymphocytes # (Auto) 0.72 K/mcL (1.50-4.80); Lymphocytes % (Auto) 16.6 % (15.0-49.0); Mean Cell Volume 77.1 fL (80.0-100.0); Mean Corpuscular HGB Conc 30.9 g/dL (31.0-36.0); Monocytes # (Auto) 1.12 K/mcL (0.10-0.90); Monocytes % (Auto) 25.9 % (1.0-12.0); Neutrophils % (Auto) 56.8 % (38.0-78.0); Platelet Count 264 K/mcL (140-440); RBC 5.16 M/mcL (4.50-5.90); Red Cell Distribution Width 16.4 % (11.5-14.5); WBC 4.3 K/mcL (4.5-11.0)
[2020-06-20] MEDS: FLUoxetine HCL 20 MG CAPSULE PO SCH (09:12)
[2020-06-20] MEDS: cefTRIAXone 2 GM in DEXTROSE 5% IN WATER 50 ML IV SCH (09:12)
[2020-06-20] MEDS: POLYETHYLENE GLYCOL 3350 17 GM PACKET PO SCH (09:12)
[2020-06-20] MEDS: ENOXAPARIN 40 MG/0.4 ML SYRINGE SQ SCH ×2 (09:12→20:05)
[2020-06-20] MEDS: amLODIPine 5 MG TABLET PO SCH (09:13)
[2020-06-20] MEDS: LISINOPRIL 10 MG TABLET PO SCH (09:13)
[2020-06-20] MEDS: TAMSULOSIN 0.4 MG CAPSULE PO SCH (09:13)
[2020-06-20] MEDS: LACTOBACILLUS 1 CAPSULE PO SCH ×2 (09:13→20:04)
[2020-06-20] MEDS: CELECOXIB 200 MG CAPSULE PO SCH ×2 (09:13→20:04)
[2020-06-20] MEDS: Oxcarbazepine [Trileptal] 600 mg Tab PO SCH ×2 (09:14→20:04)
--- NOTE | 2020-06-20 10:24 | Operative Note ---
DATE OF OPERATION: 06/18/2020 PREOPERATIVE DIAGNOSIS: Acute abdomen sepsis and small-bowel obstruction. POSTOPERATIVE DIAGNOSIS: Acute abdomen sepsis and small-bowel obstruction. PROCEDURE: 1. Diagnostic laparotomy. 2. Lysis of adhesions. 3. Placement of prophylactic mesh onlay. SURGEON: Noe Xie M.D. AUTOMOTIVE LUBE TECHNICIAN: None. INDICATIONS: This is a 44-year-old man with a BMI of 45, who presented to the emergency department with 2 days of progressive abdominal pain, nausea, and vomiting. On CT scan, he was found to have a markedly dilated proximal jejunum with a transition point in the mid-jejunum and decompressed bowel distally. Clinically, he was notably tachypneic and was in acute distress with marked abdominal tenderness and an acute abdomen with a positive bed shake sign. In addition, he had a leukopenia and elevated heart and respiratory rate consistent with a diagnosis of sepsis. He was taken emergently to the operating room for exploration. FINDINGS: 1. Large dilated bowel with mid-jejunal transition point. 2. Transition point was associated with a small adhesion. 3. There was placement of a 20 x 6 cm strip of prophylactic mesh placed in an onlay position. This was heavy-weight polypropylene Bard mesh due to abdominal obesity, BMI of 45, as well as substantial distention from his bowel obstruction. ESTIMATED BLOOD LOSS: Approximately 10 mL. COMPLICATIONS: None. IMPLANTS: Heavy-weight polypropylene mesh as above. SPECIMENS: None. DESCRIPTION OF PROCEDURE: The patient was brought to the operating room. He was intubated without incident. He was prepped and draped in the usual sterile fashion. A timeout was completed. A vertical midline incision was carried through from about the senior living point between the umbilicus and the xiphoid process to the senior living point between the umbilicus and the pubic symphysis. This was carried down through the subcutaneous tissues to the linea alba. The linea alba was split just superior to the umbilicus. Two Yessi clamps were used to elevate it. The underlying peritoneum was divided between clamps using a Metzenbaum. A finger sweep confirmed the absence of local adhesive disease, and the fascia was opened in the midline along the length of the incision. There was free fluid in the abdomen which was mildly cloudy. There were markedly dilated bowel loops which were purpuric but viable. Moving to the inferior portion of the abdomen, I identified a loop of nondilated ileum. I began to [id number] run this bowel. The direction of travel ended up being proximal, and I identified the transition point between the quite dilated bowel. This appeared to be a tethered knuckle of bowel to deeper within the pelvis/abdomen. This adhesion appeared to fracture with just the simple lifting up of the bowel. I carefully inspected the bowel wall. There was a serosal tear in that area, and this was repaired using a total of five 2-0 silk lemberting sutures in a transverse fashion to not narrow the lumen. This was reinspected later in the case and found to be without issue. I continued to run the bowel then into the segment of significant dilation. There were no masses or stricturing identified in the area adjacent to the transition point. I then ran the bowel from [id number], moving back into the nondilated loops and all the way to the ileocecal valve. I confirmed the absence of a distal obstruction. I then moved from the ileocecal valve back through the bowel. At this point a significant amount of gas and liquid had moved distally past the site of previous obstruction. I then continued to run the bowel proximally all the way to the ligament of Treitz. There was no other disease noted. There was no other significant adhesive disease within the abdomen. At this point, the nasogastric tube was confirmed to be well placed in the stomach. The abdomen was washed out and suctioned dry. Hemostasis was confirmed. The greater omentum was draped over the viscera and we proceeded to close. Closure was done with the decision made for the placement of a prophylactic mesh in the onlay position. The plane just superficial to the fascia was opened several centimeters on either side of the midline and 4 cm superior and inferior to the fascial incision. At this point, transfascial sutures of 0 PDS were placed in a clock-face fashion, snapping the ends together for later fixation of the mesh. Next, the midline fascial defect was closed using a running 0 looped Maxon suture and multiple interrupted internal retention sutures of #1 Vicryl. Of note, at the level of the umbilicus we had cut through a mesh umbilical hernia repair in an underlay position. This was reapproximated using multiple interrupted 0 Prolene sutures. Once the fascia was well approximated, mesh, which had been soaking in vancomycin solution, was brought onto the field. This was fashioned in an approximately 6 cm wide strip, which was centered over the fascial incision. The transfascial PDS sutures were threaded through the holes in the mesh and tied in place, putting the mesh under some tension. Several additional 2-0 Vicryl mattressing sutures were used to hold the edges snug to the underlying fascia. Of note, at the superior edge of the wound the manufactured mesh appeared to be too short to cover the full length of the incision, so an additional piece of mesh was brought to cover the superior strip. Again, there was good overlap with 4 cm superiorly and 3 cm laterally. Where these two pieces of mesh met, there was a small overlap, and these were sutured together using an 0 Prolene stitch in a simple, continuous fashion with small bites. At this point, the mesh was well approximated on the superficial aspect of the underlying fascia. Hemostasis was confirmed. The area was irrigated with the vancomycin solution. Next, the deep subcutaneous layer was closed using a continuous Vicryl suture, and skin was closed using a layer of deep dermal sutures followed by daisy. Dressings were applied, followed by a wound binder. The patient was extubated without incident. [email or web address] Job ID: [id number] Doc ID: [id number] Noe Xie
--- NOTE | 2020-06-20 17:23 | General Surgery Progress Note ---
SUBJECTIVE Subjective Patient information: Note initiated : 06/20/20 at 5:19 pm Service Date, if different from initiated Date: [] Patient: Phuc Calixto 44 y/o M admitted on 06/18/20 for N/V/D abdominal pain. Chief Complaint: [] Principal diagnosis: small bowel obstruction Interval history: patient states that he feels much better. He still has significant nasogastric output. He has had flatus and denies nausea. His pain is adequately controlled and he states that he feels much better than preoperatively. Constitutional Vitals: Vital Signs Temp Pulse Resp BP Pulse Ox 97.4 F 95 H 20 130/84 98 06/20/20 11:40 06/20/20 13:10 06/20/20 13:10 06/20/20 11:40 06/20/20 11:40 Period Temp Pulse Resp BP Sys/George Pulse Ox Last 24 Hr 97.4 F-98.9 F 84-103 16-20 130-142/81-91 96-100 Intake and Output 06/20/20 06/20/20 06/20/20 05:59 13:59 21:59 Intake Total 100 1120 Output Total 1650 1100 Balance -1550 20 Weight 327 lb 1.6 oz Patient Weight 06/21/20 05:59 Weight 327 lb 1.6 oz Intake & Output: Intake & Output 06/20/20 06/20/20 06/20/20 05:59 13:59 21:59 Intake Total 100 1120 Output Total 1650 1100 Balance -1550 20 Weight 327 lb 1.6 oz Intake: IV 100 1070 Lactated Ringers 1,000 ml @ 75 970 mls/hr IV .[id number] [facility] Rx#: [id number] Oral 50 Tube Feeding 0 0 Output: Gastric Drainage 950 600 Right Nare 950 600 Urine Catheter Amount 700 500 Other: Urine Appearance Clear Uretheral (Jacinto) Clear Urine Color Dark Yellow Dark Yellow Uretheral (Jacinto) Dark Yellow Urine Odor Normal Normal Uretheral (Jacinto) Normal Head Head exam: Present atraumatic and normocephalic Eye Eye exam: Present EOMI and PERRL ENT ENT exam: Present normal exam and normal oropharynx Neck Neck exam: Present full ROM; Absent lymphadenopathy Respiratory Respiratory exam: Present normal respiratory exam and CTAB Cardiovascular Cardiovascular exam: Present normal rate and rhythm, RRR, +S1 and +S2; Absent gallop GI/Abdominal GI/Abdominal exam: Present diminished bowel sounds and distended Additional comments: incision looks good; Extremities Exam Extremities exam: Present full ROM and neurovascular intact; Absent tenderness Neurological Exam Neurological exam: Present alert, CN II-XII intact, normal gait and oriented X3; Absent motor sensory deficit Psychiatric Psychiatric exam: Present normal affect and normal mood Skin Skin exam: Present erythema A/P Assessment and plan (1) Small bowel obstruction: Status: Acute Comment: 44 yo man with 2 days of SBO and now with acute abdomen in setting of lympho penia and elevated RR diagnostic of sepsis. Source intraabdominal. Plan: Urgent exploratory laparotomy Give firm abdomen, distended bowel and large girth - I do not think there is domain for laperoscopy Possible SBR Strong consideration of mesh onlay for hernia prophylaxis depending on details of case. Risk of bleeding, infection, injury to structures, hernia formation, mesh infection all discussed. Pt is in marked pain and quite eager to go to surgery. Noe Xie MD Surgery (2) Obstructive sleep apnea: Status: Acute (3) Obesity, unspecified: Status: Acute (4) Hypertension: Status: Chronic Time Spent With Patient Time: Total time spent is greater than 50% in coordination of care (as documented) at patient's floor/unit and/or counseling patient:
[2020-06-20] MEDS: METOCLOPRAMIDE 10 MG/2 ML VIAL IV SCH (17:39)
[2020-06-20] MEDS: MONTELUKAST 10 MG TABLET PO SCH (20:04)
[2020-06-20] MEDS: SIMVASTATIN 40 MG TABLET PO SCH (20:05)
[2020-06-20 22:30] LABS: Basophils # (Auto) 0.02 K/mcL (0.00-0.20); Basophils % (Auto) 0.4 % (0.0-2.0); Eosinophils % (Auto) 2.1 % (0.0-7.0); Hematocrit 39.2 % (41.0-55.0); Lymphocytes # (Auto) 0.75 K/mcL (1.50-4.80); Lymphocytes % (Auto) 15.6 % (15.0-49.0); Mean Cell Volume 77.8 fL (80.0-100.0); Mean Corpuscular HGB Conc 30.6 g/dL (31.0-36.0); Mean Platelet Volume 10.1 fL (7.4-10.4); Monocytes # (Auto) 0.99 K/mcL (0.10-0.90); Monocytes % (Auto) 20.5 % (1.0-12.0); Neutrophils % (Auto) 61.4 % (38.0-78.0); Platelet Count 249 K/mcL (140-440); RBC 5.04 M/mcL (4.50-5.90); Red Cell Distribution Width 16.5 % (11.5-14.5); WBC 4.8 K/mcL (4.5-11.0)
[2020-06-21] MEDS: METOCLOPRAMIDE 10 MG/2 ML VIAL IV SCH ×4 (00:30→17:48)
[2020-06-21] MEDS: ACETAMINOPHEN 160 MG/5 ML ORAL.SOL PO SCH ×4 (00:31→17:49)
[2020-06-21] MEDS: GABAPENTIN 400 MG CAPSULE PO SCH ×4 (00:31→17:48)
[2020-06-21] MEDS: METHOCARBAMOL 500 MG TABLET PO SCH ×4 (00:31→17:48)
[2020-06-21] MEDS: HYDROmorphone 1 MG/ML SYRINGE IV PRN ×7 (00:32→20:21)
[2020-06-21] MEDS: IPRATROPIUM/ALBUTEROL 3 ML AMPUL.NEB NEB SCH ×4 (03:36→18:55)
[2020-06-21] MEDS: metroNIDAZOLE 500 MG/100 ML BAG IV SCH ×3 (06:30→21:41)
--- NOTE | 2020-06-21 06:54 | XRay Report ---
CLINICAL INFORMATION: FOR F/U OF ILEUS COMPARISON: None. FINDINGS: The stomach and multiple loops of upper small bowel are now moderately dilated with air-fluid levels with relative decompression of the distal small bowel and colon. Findings suggestive of partial mid small bowel obstruction. NG tube is stable position the gastric body. No free air. IMPRESSION: Interval development of partial mid small bowel obstruction. Interpreted and Authenticated by: Cole Luke 06/21/20
[2020-06-21 06:57] LABS: Basophils # (Auto) 0.01 K/mcL (0.00-0.20); Basophils % (Auto) 0.2 % (0.0-2.0); Eosinophils # (Auto) 0.18 K/mcL (0.00-0.70); Hematocrit 38.1 % (41.0-55.0); Hemoglobin 11.8 g/dL (13.5-16.5); Lymphocytes # (Auto) 1.08 K/mcL (1.50-4.80); Lymphocytes % (Auto) 18.1 % (15.0-49.0); Mean Platelet Volume 9.8 fL (7.4-10.4); Monocytes # (Auto) 1.11 K/mcL (0.10-0.90); Monocytes % (Auto) 18.6 % (1.0-12.0); Neutrophils % (Auto) 60.1 % (38.0-78.0); Platelet Count 280 K/mcL (140-440); RBC 4.95 M/mcL (4.50-5.90); Red Cell Distribution Width 16.3 % (11.5-14.5)
[2020-06-21] MEDS: LACTATED RINGERS 1,000 ML IV SCH (07:03)
[2020-06-21] MEDS: cefTRIAXone 2 GM in DEXTROSE 5% IN WATER 50 ML IV SCH (08:37)
[2020-06-21] MEDS: ENOXAPARIN 40 MG/0.4 ML SYRINGE SQ SCH ×2 (08:38→20:22)
[2020-06-21] MEDS: TAMSULOSIN 0.4 MG CAPSULE PO SCH (08:38)
[2020-06-21] MEDS: CELECOXIB 200 MG CAPSULE PO SCH ×2 (08:38→20:22)
[2020-06-21] MEDS: POLYETHYLENE GLYCOL 3350 17 GM PACKET PO SCH (08:38)
[2020-06-21] MEDS: LACTOBACILLUS 1 CAPSULE PO SCH ×2 (08:38→20:22)
[2020-06-21] MEDS: FLUoxetine HCL 20 MG CAPSULE PO SCH (08:38)
[2020-06-21] MEDS: amLODIPine 5 MG TABLET PO SCH (08:39)
[2020-06-21] MEDS: LISINOPRIL 10 MG TABLET PO SCH (08:39)
[2020-06-21] MEDS: Oxcarbazepine [Trileptal] 600 mg Tab PO SCH ×2 (08:39→20:22)
--- NOTE | 2020-06-21 14:00 | General Surgery Progress Note ---
SUBJECTIVE Subjective Patient information: Note initiated : 06/21/20 at 1:55 pm Service Date, if different from initiated Date: [] Patient: Phuc Calixto 44 y/o M admitted on 06/18/20 for N/V/D abdominal pain. Chief Complaint: [] Principal diagnosis: small bowel obstruction Interval history: patient is clinically improved. He has had 2 small bowel movements and pass a small amount of flatus. He still has significant abdominal distention. He denies nausea and his pain is adequately controlled. White blood count 6, hemoglobin 11.8, hematocrit 38.1. Constitutional Vitals: Vital Signs Temp Pulse Resp BP Pulse Ox 98.8 F 87 18 127/83 96 06/21/20 07:50 06/21/20 12:40 06/21/20 12:40 06/21/20 07:50 06/21/20 07:50 Period Temp Pulse Resp BP Sys/George Pulse Ox Last 24 Hr 97.4 F-99.2 F 87-105 18-24 127-136/70-83 93-98 Intake and Output 06/20/20 06/21/20 06/21/20 21:59 05:59 13:59 Intake Total 1100 200 250 Output Total 450 495 Balance 650 -295 250 Weight 326 lb 1.6 oz Intake & Output: Intake & Output 06/20/20 06/21/20 06/21/20 21:59 05:59 13:59 Intake Total 1100 200 250 Output Total 450 495 Balance 650 -295 250 Weight 326 lb 1.6 oz Intake: IV 1100 100 150 Lactated Ringers 1,000 ml @ 75 1000 mls/hr IV .[id number] [facility] Rx#: [id number] Rocephin 2 gm In Dextrose 5% in 50 Water 50 ml @ 100 mls/hr IV Q24H [facility] Rx#:[id number] Oral 100 100 Tube Feeding 0 0 0 Output: Gastric Drainage 20 Right Nare 20 Urine Catheter Amount 450 475 Other: Urine Appearance Clear Uretheral (Jacinto) Clear Urine Color Dark Domi Light Domi Uretheral (Jacinto) Dark Yellow Urine Odor Strong Stool Size Small Stool Color Brown Dark Red Blood Stool Consistency Liquid Loose # Bowel Movements 0 Head Head exam: Present atraumatic and normocephalic Eye Eye exam: Present EOMI and PERRL ENT ENT exam: Present normal exam and normal oropharynx Neck Neck exam: Present full ROM; Absent lymphadenopathy Respiratory Respiratory exam: Present normal respiratory exam and CTAB Cardiovascular Cardiovascular exam: Present normal rate and rhythm, RRR, +S1 and +S2; Absent gallop GI/Abdominal GI/Abdominal exam: Present diminished bowel sounds and distended Additional comments: incision looks good; Extremities Exam Extremities exam: Present full ROM and neurovascular intact; Absent tenderness Neurological Exam Neurological exam: Present alert, CN II-XII intact, normal gait and oriented X3; Absent motor sensory deficit Psychiatric Psychiatric exam: Present normal affect and normal mood Skin Skin exam: Present erythema A/P Assessment and plan (1) Small bowel obstruction: Status: Acute Comment: 44 yo man with 2 days of SBO and now with acute abdomen in setting of lymphopenia and elevated RR diagnostic of sepsis. Source intraabdominal. Plan: Urgent exploratory laparotomy Give firm abdomen, distended bowel and large girth - I do not think there is domain for laperoscopy Possible SBR Strong consideration of mesh onlay for hernia prophylaxis depending on details of case. Risk of bleeding, infection, injury to structures, hernia formation, mesh infection all discussed. Pt is in marked pain and quite eager to go to surgery. Noe Xie MD Surgery (2) Obstructive sleep apnea: Status: Acute (3) Chronic atrial fibrillation: Status: Chronic (4) Morbid obesity: Status: Chronic Narrative A/P Narrative: nasogastric tube repositioned. We'll continue her on IV Reglan. Follow-up abdominal x-rays in the morning. CBC and inpatient panel in the morning Time Spent With Patient Time: Total time spent is greater than 50% in coordination of care (as documented) at patient's floor/unit and/or counseling patient:
[2020-06-21] MEDS: MONTELUKAST 10 MG TABLET PO SCH (20:22)
[2020-06-21] MEDS: SIMVASTATIN 40 MG TABLET PO SCH (20:22)
[2020-06-22] MEDS: METOCLOPRAMIDE 10 MG/2 ML VIAL IV SCH ×5 (00:04→23:56)
[2020-06-22] MEDS: GABAPENTIN 400 MG CAPSULE PO SCH ×5 (00:04→23:56)
[2020-06-22] MEDS: METHOCARBAMOL 500 MG TABLET PO SCH ×5 (00:05→23:57)
[2020-06-22] MEDS: HYDROmorphone 1 MG/ML SYRINGE IV PRN ×10 (00:05→23:59)
[2020-06-22] MEDS: IPRATROPIUM/ALBUTEROL 3 ML AMPUL.NEB NEB SCH ×4 (02:16→19:20)
[2020-06-22] MEDS: metroNIDAZOLE 500 MG/100 ML BAG IV SCH ×4 (06:09→21:16)
[2020-06-22] MEDS: LACTATED RINGERS 1,000 ML IV SCH ×2 (06:09→15:05)
[2020-06-22 07:27] LABS: Basophils # (Auto) 0.03 K/mcL (0.00-0.20); Basophils % (Auto) 0.5 % (0.0-2.0); Eosinophils # (Auto) 0.22 K/mcL (0.00-0.70); Eosinophils % (Auto) 3.6 % (0.0-7.0); Hematocrit 38.3 % (41.0-55.0); Hemoglobin 11.8 g/dL (13.5-16.5); Lymphocytes # (Auto) 1.02 K/mcL (1.50-4.80); Lymphocytes % (Auto) 16.7 % (15.0-49.0); Mean Cell Volume 75.2 fL (80.0-100.0); Mean Corpuscular HGB Conc 30.8 g/dL (31.0-36.0); Mean Platelet Volume 10.1 fL (7.4-10.4); Monocytes # (Auto) 0.84 K/mcL (0.10-0.90); Monocytes % (Auto) 13.7 % (1.0-12.0); Neutrophils % (Auto) 65.5 % (38.0-78.0); Platelet Count 322 K/mcL (140-440); RBC 5.09 M/mcL (4.50-5.90); Red Cell Distribution Width 15.9 % (11.5-14.5); WBC 6.1 K/mcL (4.5-11.0)
[2020-06-22 08:35] LABS: ALT/SGPT 22 U/L (<40); AST/SGOT 27 U/L (<40); Albumin 3.6 gm/dL (3.2-5.2); Albumin/Globulin Ratio 1.2 (1.0-2.3); Alkaline Phosphatase 59 U/L (39-117); Bilirubin,Direct < 0.2 mg/dL (<0.3); Bilirubin,Total 0.3 mg/dL (0.1-1.0); Blood Urea Nitrogen 9 mg/dL (6-20); Calcium 9.5 mg/dL (8.6-10.4); Carbon Dioxide 24 mmol/L (22-30); Chloride 98 mmol/L (96-108); Glomerular Filtration Rate 130; Glucose 67 mg/dL (70-105); Lactate Dehydrogenase 214 U/L (135-225); Phosphorous 2.2 mg/dL (2.5-4.5); Triglycerides 158 mg/dL (<150); Uric Acid 5.8 mg/dL (2.5-8.0)
[2020-06-22] MEDS: LACTOBACILLUS 1 CAPSULE PO SCH ×2 (09:03→21:15)
[2020-06-22] MEDS: CELECOXIB 200 MG CAPSULE PO SCH ×2 (09:03→21:16)
[2020-06-22] MEDS: ENOXAPARIN 40 MG/0.4 ML SYRINGE SQ SCH ×2 (09:03→21:15)
[2020-06-22] MEDS: TAMSULOSIN 0.4 MG CAPSULE PO SCH (09:03)
[2020-06-22] MEDS ORDERED: cefTRIAXone 2 GM VIAL ONE (09:03)
[2020-06-22] MEDS: amLODIPine 5 MG TABLET PO SCH (09:04)
[2020-06-22] MEDS: POLYETHYLENE GLYCOL 3350 17 GM PACKET PO SCH ×5 (09:04→23:57)
[2020-06-22] MEDS: Oxcarbazepine [Trileptal] 600 mg Tab PO SCH ×2 (09:04→21:16)
[2020-06-22] MEDS: LISINOPRIL 10 MG TABLET PO SCH (09:05)
[2020-06-22] MEDS: cefTRIAXone 2 GM in DEXTROSE 5% IN WATER 50 ML IV SCH (09:10)
[2020-06-22] MEDS: FLUoxetine HCL 20 MG CAPSULE PO SCH (09:10)
--- NOTE | 2020-06-22 13:18 | XRay Report ---
CLINICAL INFORMATION: Follow small bowel obstruction COMPARISON: 06/21/2020 FINDINGS: NG tube overlies the gastric pyloric region. Stomach and duodenum are decompressed. Few loops of proximal jejunum are mildly dilated but decreased from yesterday's film. There is now more gas in the distal small bowel and colon on today's exam. No free air or soft tissue mass. IMPRESSION: Improving upper partial small bowel obstruction Interpreted and Authenticated by: Cole Luke 06/22/20
--- NOTE | 2020-06-22 15:31 | General Surgery Progress Note ---
SUBJECTIVE Subjective Patient information: Note initiated : 06/22/20 at 3:26 pm Service Date, if different from initiated Date: [] Patient: Phuc Calixto 44 y/o M admitted on 06/18/20 for N/V/D abdominal pain. Chief Complaint: [] Principal diagnosis: small bowel obstruction Interval history: patient is significantly improved. He has had more bowel movements and his mass. Large volume of flatus. Nasogastric tube has put out about 300 cc. He still has significant abdominal distention, but his baseline abdominal girth is very large psoas difficult to tell. He has good active bowel sounds, however. Potassium 3.4 BUN 9, creatinine 0.5, phosphorus 2.2. X-rays show increased gas in the colon extending down to the rectum with decrease small bowel gas. Constitutional Vitals: Vital Signs Temp Pulse Resp BP Pulse Ox 97.4 F 89 18 145/87 98 06/22/20 12:00 06/22/20 12:00 06/22/20 12:00 06/22/20 12:00 06/22/20 12:00 Period Temp Pulse Resp BP Sys/George Pulse Ox Last 24 Hr 97.2 F-98.0 F 89-108 18-24 134-157/80-90 96-99 Intake and Output 06/22/20 06/22/20 06/22/20 05:59 13:59 21:59 Intake Total 200 150 100 Output Total 1835 450 Balance -1635 -300 100 Intake & Output: Intake & Output 06/22/20 06/22/20 06/22/20 05:59 13:59 21:59 Intake Total 200 150 100 Output Total 1835 450 Balance -1635 -300 100 Intake: IV 100 150 100 Rocephin 2 gm In Dextrose 5% in 50 Water 50 ml @ 100 mls/hr IV Q24H [facility] Rx#:[id number] Oral 100 Tube Feeding 0 0 Output: Gastric Drainage 60 450 Right Nare 60 450 Urine Catheter Amount 1775 Other: Urine Appearance Clear Clear Uretheral (Jacinto) Clear Urine Color Tea Colored Light Domi Uretheral (Jacinto) Dark Yellow Urine Odor Normal Strong Stool Size Small Small Stool Color Black Brown Dark Red Blood Stool Consistency Loose Soft # Bowel Movements 1 1 Head Head exam: Present atraumatic and normocephalic Eye Eye exam: Present EOMI and PERRL ENT ENT exam: Present normal exam and normal oropharynx Neck Neck exam: Present full ROM; Absent lymphadenopathy Respiratory Respiratory exam: Present normal respiratory exam and CTAB Cardiovascular Cardiovascular exam: Present normal rate and rhythm, RRR, +S1 and +S2; Absent gallop GI/Abdominal GI/Abdominal exam: Present diminished bowel sounds and distended Additional comments: incision looks good; Extremities Exam Extremities exam: Present full ROM and neurovascular intact; Absent tenderness Neurological Exam Neurological exam: Present alert, CN II-XII intact, normal gait and oriented X3; Absent motor sensory deficit Psychiatric Psychiatric exam: Present normal affect and normal mood Skin Skin exam: Present erythema A/P Assessment and plan (1) Small bowel obstruction: Status: Acute Comment: 44 yo man with 2 days of SBO and now with acute abdomen in setting of lymphopenia and elevated RR diagnostic of sepsis. Source intraabdominal. Plan: Urgent exploratory laparotomy Give firm abdomen, distended bowel and large girth - I do not think there is domain for laperoscopy Possible SBR Strong consideration of mesh onlay for hernia prophylaxis depending on details of case. Risk of bleeding, infection, injury to structures, hernia formation, mesh infection all discussed. Pt is in marked pain and quite eager to go to surgery. Noe Xie MD Surgery (2) Obstructive sleep apnea: Status: Acute (3) Paroxysmal atrial fibrillation: Status: Chronic (4) Morbid obesity: Status: Chronic Narrative A/P Narrative: patient is making significant improvement. Nasogastric tube was discontinued. Clear liquid diet started. MiraLAX. 4 times daily. Follow-up abdominal x-rays in the morning Time Spent With Patient Time: Total time spent is greater than 50% in coordination of care (as documented) at patient's floor/unit and/or counseling patient:
[2020-06-22] MEDS: SIMVASTATIN 40 MG TABLET PO SCH (21:15)
[2020-06-22] MEDS: MONTELUKAST 10 MG TABLET PO SCH (21:15)
[2020-06-23] MEDS: LACTATED RINGERS 1,000 ML IV SCH ×3 (00:46→17:07)
[2020-06-23] MEDS: IPRATROPIUM/ALBUTEROL 3 ML AMPUL.NEB NEB SCH ×4 (00:53→19:42)
[2020-06-23] MEDS: HYDROmorphone 1 MG/ML SYRINGE IV PRN ×9 (02:18→23:50)
[2020-06-23] MEDS: POLYETHYLENE GLYCOL 3350 17 GM PACKET PO SCH ×2 (04:41→08:56)
[2020-06-23] MEDS: METHOCARBAMOL 500 MG TABLET PO SCH ×4 (06:01→23:41)
[2020-06-23] MEDS: metroNIDAZOLE 500 MG/100 ML BAG IV SCH ×3 (06:01→21:01)
[2020-06-23] MEDS: METOCLOPRAMIDE 10 MG/2 ML VIAL IV SCH ×4 (06:01→23:41)
[2020-06-23] MEDS: GABAPENTIN 400 MG CAPSULE PO SCH ×4 (06:01→23:41)
[2020-06-23 06:43] LABS: Basophils # (Auto) 0.03 K/mcL (0.00-0.20); Basophils % (Auto) 0.4 % (0.0-2.0); Eosinophils # (Auto) 0.28 K/mcL (0.00-0.70); Hematocrit 37.4 % (41.0-55.0); Hemoglobin 11.7 g/dL (13.5-16.5); Lymphocytes # (Auto) 1.12 K/mcL (1.50-4.80); Lymphocytes % (Auto) 15.9 % (15.0-49.0); Mean Cell Volume 75.6 fL (80.0-100.0); Mean Corpuscular HGB Conc 31.3 g/dL (31.0-36.0); Mean Platelet Volume 10.1 fL (7.4-10.4); Monocytes # (Auto) 0.95 K/mcL (0.10-0.90); Monocytes % (Auto) 13.5 % (1.0-12.0); Neutrophils % (Auto) 66.2 % (38.0-78.0); Platelet Count 333 K/mcL (140-440); RBC 4.95 M/mcL (4.50-5.90); Red Cell Distribution Width 15.9 % (11.5-14.5); WBC 7.1 K/mcL (4.5-11.0)
[2020-06-23] MEDS: LISINOPRIL 10 MG TABLET PO SCH (08:55)
[2020-06-23] MEDS: amLODIPine 5 MG TABLET PO SCH (08:55)
[2020-06-23] MEDS: CELECOXIB 200 MG CAPSULE PO SCH ×2 (08:55→21:01)
[2020-06-23] MEDS: ENOXAPARIN 40 MG/0.4 ML SYRINGE SQ SCH ×2 (08:55→21:01)
[2020-06-23] MEDS: FLUoxetine HCL 20 MG CAPSULE PO SCH (08:55)
[2020-06-23] MEDS: LACTOBACILLUS 1 CAPSULE PO SCH ×2 (08:55→21:01)
[2020-06-23] MEDS: TAMSULOSIN 0.4 MG CAPSULE PO SCH (08:55)
[2020-06-23] MEDS: Oxcarbazepine [Trileptal] 600 mg Tab PO SCH ×2 (08:56→20:40)
[2020-06-23] MEDS: cefTRIAXone 2 GM in DEXTROSE 5% IN WATER 50 ML IV SCH (08:56)
--- NOTE | 2020-06-23 09:15 | XRay Report ---
CLINICAL INFORMATION: Follow-up partial small bowel obstruction. COMPARISON: None. FINDINGS: NG tube has been removed. Stomach duodenum and upper jejunum are mildly dilated with relative decreased caliber in the mid/distal small bowel and colon. No free air. IMPRESSION: Atypical ileus versus recurrent partial small bowel obstruction pattern. Interpreted and Authenticated by: Cole Luke 06/23/20
--- NOTE | 2020-06-23 12:35 | General Surgery Progress Note ---
SUBJECTIVE Subjective Patient information: Note initiated : 06/23/20 at 12:32 pm Service Date, if different from initiated Date: [] Patient: Phuc Calixto 44 y/o M admitted on 06/18/20 for N/V/D abdominal pain. Chief Complaint: [] Principal diagnosis: small bowel obstruction Interval history: patient continues to improve. He's had multiple bowel movements and has passed a large volume of flatus. He has much less abdominal discomfort, though he still has significant abdominal distention. White blood count 7.1, hemoglobin 11.7, hematocrit 37.4. Constitutional Vitals: Vital Signs Temp Pulse Resp BP Pulse Ox 97.4 F 88 16 128/82 95 06/23/20 12:00 06/23/20 12:00 06/23/20 12:00 06/23/20 12:00 06/23/20 12:00 Period Temp Pulse Resp BP Sys/George Pulse Ox Last 24 Hr 97.4 F-98.5 F 87-101 16-18 124-148/76-87 95-99 Intake and Output 06/22/20 06/23/20 06/23/20 21:59 05:59 13:59 Intake Total 1580 1620 860 Output Total 1750 2350 Balance -170 -730 860 Weight 324 lb 11.2 oz Intake & Output: Intake & Output 06/22/20 06/23/20 06/23/20 21:59 05:59 13:59 Intake Total 1580 1620 860 Output Total 1750 2350 Balance -170 -730 860 Weight 324 lb 11.2 oz Intake: IV 1100 100 Lactated Ringers 1,000 ml @ 75 1000 mls/hr IV .[id number] [facility] Rx#: [id number] Oral 480 1520 860 Output: Gastric Drainage 300 Right Nare 300 Urine Catheter Amount 1050 Void Amount 400 2350 Other: Meal Breakfast Percent of Meal Consumed 100% Feeding Ability Independent Urine Appearance Clear Clear Clear Urine Color Dark Yellow Bright Yellow Bright Yellow Urine Odor Normal Normal Stool Size Moderate Moderate Stool Color Brown Brown Stool Consistency Formed Formed Liquid Liquid Loose Loose # Bowel Movements 1 Head Head exam: Present atraumatic and normocephalic Eye Eye exam: Present EOMI and PERRL ENT ENT exam: Present normal exam and normal oropharynx Neck Neck exam: Present full ROM; Absent lymphadenopathy Respiratory Respiratory exam: Present normal respiratory exam and CTAB Cardiovascular Cardiovascular exam: Present normal rate and rhythm, RRR, +S1 and +S2; Absent gallop GI/Abdominal GI/Abdominal exam: Present diminished bowel sounds and distended Additional comments: incision looks good; Extremities Exam Extremities exam: Present full ROM and neurovascular intact; Absent tenderness Neurological Exam Neurological exam: Present alert, CN II-XII intact, normal gait and oriented X3; Absent motor sensory deficit Psychiatric Psychiatric exam: Present normal affect and normal mood A/P Assessment and plan (1) Small bowel obstruction: Status: Acute Comment: 44 yo man with 2 days of SBO and now with acute abdomen in setting of lymphopenia and elevated RR diagnostic of sepsis. Source intraabdominal. Plan: Urgent exploratory laparotomy Give firm abdomen, distended bowel and large girth - I do not think there is domain for laperoscopy Possible SBR Strong consideration of mesh onlay for hernia prophylaxis depending on details of case. Risk of bleeding, infection, injury to structures, hernia formation, mesh infection all discussed. Pt is in marked pain and quite eager to go to surgery. Noe Xie MD Surgery (2) Obstructive sleep apnea: Status: Acute Narrative A/P Narrative: patient is clinically improved. Abdominal x-rays are much improved and there is large volume of gas in his colon. He is probably stable for discharge in the morning. Time Spent With Patient Time: Total time spent is greater than 50% in coordination of care (as documented) at patient's floor/unit and/or counseling patient:
[2020-06-23] MEDS: SIMVASTATIN 40 MG TABLET PO SCH (21:01)
[2020-06-23] MEDS: MONTELUKAST 10 MG TABLET PO SCH (21:01)
[2020-06-24] MEDS: IPRATROPIUM/ALBUTEROL 3 ML AMPUL.NEB NEB SCH ×3 (00:27→13:47)
[2020-06-24] MEDS: HYDROmorphone 1 MG/ML SYRINGE IV PRN ×6 (02:39→15:10)
[2020-06-24] MEDS: METHOCARBAMOL 500 MG TABLET PO SCH ×2 (04:59→11:45)
[2020-06-24] MEDS: metroNIDAZOLE 500 MG/100 ML BAG IV SCH ×2 (05:00→13:37)
[2020-06-24] MEDS: GABAPENTIN 400 MG CAPSULE PO SCH ×2 (05:00→11:45)
[2020-06-24] MEDS: METOCLOPRAMIDE 10 MG/2 ML VIAL IV SCH ×2 (05:00→11:45)
[2020-06-24] MEDS: LACTATED RINGERS 1,000 ML IV SCH (05:24)
[2020-06-24] MEDS: cefTRIAXone 2 GM in DEXTROSE 5% IN WATER 50 ML IV SCH (08:19)
[2020-06-24] MEDS: FLUoxetine HCL 20 MG CAPSULE PO SCH (08:27)
[2020-06-24] MEDS: LACTOBACILLUS 1 CAPSULE PO SCH (08:27)
[2020-06-24] MEDS: ENOXAPARIN 40 MG/0.4 ML SYRINGE SQ SCH (08:27)
[2020-06-24] MEDS: CELECOXIB 200 MG CAPSULE PO SCH (08:28)
[2020-06-24] MEDS: amLODIPine 5 MG TABLET PO SCH (08:28)
[2020-06-24] MEDS: LISINOPRIL 10 MG TABLET PO SCH (08:28)
[2020-06-24] MEDS: TAMSULOSIN 0.4 MG CAPSULE PO SCH (11:07)
[2020-06-24] MEDS: POLYETHYLENE GLYCOL 3350 17 GM PACKET PO SCH (11:07)
[2020-06-24] MEDS: Oxcarbazepine [Trileptal] 600 mg Tab PO SCH (11:08)
--- NOTE | 2020-06-24 16:03 | Discharge Summary ---
Discharge Provider Provider Patient information: Note initiated : 06/24/20 at 3:58 pm Service Date, if different from initiated Date: [] Patient: Phuc Calixto 44 y/o M admitted on 06/18/20 for N/V/D abdominal pain. Chief Complaint: [] Date of admission: 06/18/20 18:51 Discharge date: 06/24/20 Primary care physician: Reji Bell Admitting clinician: Noe Xie Attending physician on admission: Noe Xie Consults: 06/18/20 Consult to Physician [CONS] Stat Comment: Consulting Provider: Noe Xie Reason For Exam: Physician to Consult Attending physician on discharge: Juvenal Bernstein Discharging clinician: Juvenal Bernstein COURSE Hospital Course Hospital course: 44-year-old male admitted with acute abdominal pain with nausea vomiting and abdominal distention. Radiographs suggested acute intestinal obstruction. He underwent laparotomy with adhesion lysis. He had moderate postoperative ileus, but at this time is having regular bowel movements and tolerating a regular diet. He does not have any nausea. His incision looks good. Patient is stable for discharge. Discharge diagnosis: small bowel obstruction secondary to adhesions Reason for admission: small bowel obstruction Procedures: exploratory laparotomy with adhesiolysis Pertinent studies/significant findings: CT of abdomen and pelvis with IV contrast Complications: none Time Spent with Patient Time attestation: Total time spent providing and/or coordinating discharge services: Physical Examination Vital Signs Vital signs: Temp Pulse Resp BP Pulse Ox 98.1 F 100 H 18 117/78 92 06/24/20 12:00 06/24/20 12:00 06/24/20 12:00 06/24/20 12:00 06/24/20 12:00 General physical appearance General physical exam: well developed, well nourished, no distress, moderate pain and obese Eyes Eye exam: PERRL and normal ocular movement ENT ENT exam: normal pinna, normal nares, normal mucosa and no hearing loss Head Head exam IM: Present atraumatic, normal inspection and normocephalic Neck Neck exam: no masses, no bruits, trachea midline, no lymphadenopathy and no venous distension Cardiovascular Cardiovascular exam IM: Present normal rate and rhythm, RRR, +S1 and +S2; Absent bradycardia, gallop and JVD Respiratory Respiratory exam: normal expansion, normal respiratory effort, clear to percussion and clear to auscultation Abdomen Abdomen: Present soft, tender (mild incisional tenderness) and bowel sounds (no rmal active bowel sounds) Integumentary Integumentary: Present no rash, no growths and no abnormal pigmentation Neurologic Neurologic: Present normal coordination and normal sensation Musculoskeletal Musculoskeletal: Present normal gait and normal posture Psychiatric Psychiatric: Present oriented to time, oriented to person, oriented to place, speech is normal and memory intact Discharge Plan Patient/Caregiver Discharge Instructions Activity: increase activity as tolerated Diet: Regular Diet Instructions: Bowel Obstruction (DC), Lysis of Abdominal Adhesions (DC) Prescriptions: New oxycodone 10 mg tablet 10 mg PO Q4H PRN (Reason: pain;postoperative) Qty: 40 RF: 0 Continued meloxicam 15 mg tablet 15 mg PO QDAY Qty: 30 RF: 2 diclofenac sodium 75 mg tablet,delayed release (DR/EC) 75 mg PO .UNKNOWN RF: 0 albuterol sulfate [Ventolin HFA] 90 mcg/actuation HFA aerosol inhaler 1 inh INHALATION .UNKNOWN RF: 0 ascorbic acid (vitamin C) 1,000 mg tablet 1 g PO DAILY RF: 0 amlodipine 2.5 mg tablet 2.5 mg PO QDAY RF: 0 Eliquis 5 mg tablet 5 mg PO BID RF: 0 fluoxetine [Prozac] 40 mg capsule 80 mg PO QDAY RF: 0 folic acid 1 mg tablet 1 mg PO QDAY RF: 0 lisinopril 20 mg tablet 20 mg PO QPM RF: 0 magnesium oxide 400 mg magnesium capsule 400 mg PO QDAY RF: 0 montelukast 10 mg tablet 10 mg PO QPM RF: 0 oxcarbazepine 300 mg tablet 600 mg PO BID RF: 0 simvastatin 40 mg tablet 40 mg PO QPM RF: 0 tamsulosin [Flomax] 0.4 mg capsule 0.4 mg PO QDAY RF: 0 flaxseed oil [[place]-3 Flaxseed Oil] 1,000 mg capsule See Rx Instructions PO QDAY RF: 0 albuterol sulfate [Ventolin HFA] 90 mcg/actuation HFA aerosol inhaler 2 puff INHALATION Q6H PRN (Reason: Wheezing) RF: 0 oxycodone-acetaminophen 10-325 mg tablet 1 tab PO Q4-6H MDD 4 PRN (Reason: pain) Qty: 120 RF: 0 cyclobenzaprine 10 mg tablet 10 mg PO TID MDD 3 PRN (Reason: muscle spasm) Qty: 90 RF: 2 naloxone 4 mg/actuation spray,non-aerosol 1 spray INTRANASAL Q2-3M PRN (Reason: opioid overdose) Qty: 2 RF: 0 ferrous sulfate [FeroSul] 325 mg (65 mg iron) tablet 325 mg PO QDAY RF: 0 Follow Up Plan Follow up with: Juvenal Bernstein MD [Physician] - 07/05/20 8:30 am Patient Disposition: Home, Self-Care Prognosis: Good Rehab Potential: Good I certify that the patient requires SNF services: No Overall status at discharge: patient is progressing back to baseline Discharge Orders: Discharge Order (Routine); Ordered 06/24/20 Ordered By: Juvenal Bernstein Pending Pending Pending: Resuscitation Status Full Code Diet GI Soft/Transitional Start Daphnie Jun 23 1313 Albuterol/Ipratropium (Duoneb) 3 ml NEB Q6HRT [facility] Admin: 06/24/20 13:47 Dose: Not Given Documented by: Admin: 06/24/20 07:54 Dose: Not Given Documented by: Admin: 06/24/20 00:27 Dose: Not Given Documented by: Admin: 06/23/20 19:42 Dose: Not Given Documented by: Admin: 06/23/20 14:14 Dose: Not Given Documented by: Admin: 06/23/20 06:29 Dose: Not Given Documented by: Admin: 06/23/20 00:53 Dose: 3 ml Documented by: Admin: 06/22/20 19:20 Dose: Not Given Documented by: Admin: 06/22/20 13:28 Dose: Not Given Documented by: Admin: 06/22/20 06:36 Dose: 3 ml Documented by: Admin: 06/22/20 02:16 Dose: Not Given Documented by: Admin: 06/21/20 18:55 Dose: 3 ml Documented by: Admin: 06/21/20 12:40 Dose: 3 ml Documented by: Admin: 06/21/20 06:59 Dose: 3 ml Documented by: Admin: 06/21/20 03:36 Dose: Not Given Documented by: Admin: 06/20/20 19:03 Dose: 3 ml Documented by: Admin: 06/20/20 13:10 Dose: 3 ml Documented by: Admin: 06/20/20 07:11 Dose: 3 ml Documented by: [email or web address] Admin: 06/20/20 01:15 Dose: 3 ml Documented by: Admin: 06/19/20 19:15 Dose: 3 ml Documented by: Admin: 06/19/20 13:41 Dose: 3 ml Documented by: [email or web address] Admin: 06/19/20 07:23 Dose: 3 ml Documented by: [email or web address] Amlodipine Besylate (Norvasc) 2.5 mg PO DAILY [facility] Admin: 06/24/20 08:28 Dose: 2.5 mg Documented by: Admin: 06/23/20 08:55 Dose: 2.5 mg Documented by: Admin: 06/22/20 09:04 Dose: 2.5 mg Documented by: Admin: 06/21/20 08:39 Dose: 2.5 mg Documented by: Admin: 06/20/20 09:13 Dose: 2.5 mg Documented by: Admin: 06/19/20 10:30 Dose: 2.5 mg Documented by: JAY Celecoxib (Celebrex) 200 mg PO Q12 [facility] Admin: 06/24/20 08:28 Dose: 200 mg Documented by: Admin: 06/23/20 21:01 Dose: 200 mg Documented by: Admin: 06/23/20 08:55 Dose: 200 mg Documented by: Admin: 06/22/20 21:16 Dose: 200 mg Documented by: Admin: 06/22/20 09:03 Dose: 200 mg Documented by: Admin: 06/21/20 20:22 Dose: 200 mg Documented by: Admin: 06/21/20 08:38 Dose: 200 mg Documented by: Admin: 06/20/20 20:04 Dose: 200 mg Documented by: Admin: 06/20/20 09:13 Dose: 200 mg Documented by: Admin: 06/19/20 20:20 Dose: 200 mg Documented by: Admin: 06/19/20 10:30 Dose: 200 mg Documented by: JAY Enoxaparin Sodium (Lovenox) 40 mg SQ BID [facility] Admin: 06/24/20 08:27 Dose: 40 mg Documented by: Admin: 06/23/20 21:01 Dose: 40 mg Documented by: Admin: 06/23/20 08:55 Dose: 40 mg Documented by: Admin: 06/22/20 21:15 Dose: 40 mg Documented by: Admin: 06/22/20 09:03 Dose: 40 mg Documented by: Admin: 06/21/20 20:22 Dose: 40 mg Documented by: Admin: 06/21/20 08:38 Dose: 40 mg Documented by: Admin: 06/20/20 20:05 Dose: 40 mg Documented by: Admin: 06/20/20 09:12 Dose: 40 mg Documented by: Admin: 06/19/20 20:20 Dose: 40 mg Documented by: JONATHAN Fluoxetine HCl (Prozac) 80 mg PO DAILY [facility] Admin: 06/24/20 08:27 Dose: 80 mg Documented by: Admin: 06/23/20 08:55 Dose: 80 mg Documented by: Admin: 06/22/20 09:10 Dose: 80 mg Documented by: Admin: 06/21/20 08:38 Dose: 80 mg Documented by: Admin: 06/20/20 09:12 Dose: 80 mg Documented by: Admin: 06/19/20 10:18 Dose: Not Given Documented by: JAY Gabapentin (Neurontin) 400 mg PO Q6 [facility] Admin: 06/24/20 11:45 Dose: 400 mg Documented by: Admin: 06/24/20 05:00 Dose: 400 mg Documented by: Admin: 06/23/20 23:41 Dose: 400 mg Documented by: Admin: 06/23/20 17:07 Dose: 400 mg Documented by: Admin: 06/23/20 11:55 Dose: 400 mg Documented by: Admin: 06/23/20 06:01 Dose: 400 mg Documented by: Admin: 06/22/20 23:56 Dose: 400 mg Documented by: Admin: 06/22/20 17:24 Dose: 400 mg Documented by: Admin: 06/22/20 12:19 Dose: 400 mg Documented by: Admin: 06/22/20 05:54 Dose: 400 mg Documented by: Admin: 06/22/20 00:04 Dose: 400 mg Documented by: Admin: 06/21/20 17:48 Dose: 400 mg Documented by: Admin: 06/21/20 11:27 Dose: 400 mg Documented by: Admin: 06/21/20 06:10 Dose: 400 mg Documented by: Admin: 06/21/20 00:31 Dose: 400 mg Documented by: Admin: 06/20/20 17:39 Dose: 400 mg Documented by: Admin: 06/20/20 12:18 Dose: 400 mg Documented by: Admin: 06/20/20 06:05 Dose: 400 mg Documented by: Admin: 06/20/20 00:16 Dose: 400 mg Documented by: Admin: 06/19/20 17:07 Dose: 400 mg Documented by: Admin: 06/19/20 14:20 Dose: Not Given Documented by: Admin: 06/19/20 05:18 Dose: Not Given Documented by: NORMA Hydromorphone HCl (Dilaudid) 1 mg IV Q2HP PRN; Protocol PRN Reason: Per Pain Protocol Last Admin: 06/24/20 15:10 Dose: 1 mg Documented by: Admin: 06/24/20 13:21 Dose: 1 mg Documented by: Admin: 06/24/20 11:06 Dose: 1 mg Documented by: Admin: 06/24/20 08:43 Dose: 1 mg Documented by: Admin: 06/24/20 05:00 Dose: 1 mg Documented by: Admin: 06/24/20 02:39 Dose: 1 mg Documented by: Admin: 06/23/20 23:50 Dose: 1 mg Documented by: Admin: 06/23/20 21:00 Dose: 1 mg Documented by: Admin: 06/23/20 17:08 Dose: 1 mg Documented by: Admin: 06/23/20 14:09 Dose: 1 mg Documented by: Admin: 06/23/20 11:55 Dose: 1 mg Documented by: Admin: 06/23/20 09:45 Dose: 1 mg Documented by: Admin: 06/23/20 07:36 Dose: 1 mg Documented by: Admin: 06/23/20 04:41 Dose: 1 mg Documented by: Admin: 06/23/20 02:18 Dose: 1 mg Documented by: Admin: 06/22/20 23:59 Dose: 1 mg Documented by: Admin: 06/22/20 21:15 Dose: 1 mg Documented by: Admin: 06/22/20 18:22 Dose: 1 mg Documented by: Admin: 06/22/20 16:07 Dose: 1 mg Documented by: Admin: 06/22/20 13:27 Dose: 1 mg Documented by: Admin: 06/22/20 11:06 Dose: 1 mg Documented by: Admin: 06/22/20 07:01 Dose: 1 mg Documented by: Admin: 06/22/20 04:48 Dose: 1 mg Documented by: Admin: 06/22/20 02:40 Dose: 1 mg Documented by: Admin: 06/22/20 00:05 Dose: 1 mg Documented by: Admin: 06/21/20 20:21 Dose: 1 mg Documented by: Admin: 06/21/20 17:49 Dose: 1 mg Documented by: Admin: 06/21/20 13:36 Dose: 1 mg Documented by: Admin: 06/21/20 09:48 Dose: 1 mg Documented by: Admin: 06/21/20 06:47 Dose: 1 mg Documented by: Admin: 06/21/20 04:34 Dose: 1 mg Documented by: Admin: 06/21/20 00:32 Dose: 1 mg Documented by: Admin: 06/20/20 22:19 Dose: 1 mg Documented by: Admin: 06/20/20 20:17 Dose: 1 mg Documented by: Admin: 06/20/20 17:40 Dose: 1 mg Documented by: Admin: 06/20/20 13:36 Dose: 1 mg Documented by: Admin: 06/20/20 09:31 Dose: 1 mg Documented by: Admin: 06/20/20 05:21 Dose: 1 mg Documented by: Admin: 06/20/20 03:21 Dose: 1 mg Documented by: Admin: 06/20/20 00:05 Dose: 1 mg Documented by: Admin: 06/19/20 20:51 Dose: 1 mg Documented by: Admin: 06/19/20 18:47 Dose: 1 mg Documented by: Admin: 06/19/20 14:49 Dose: 1 mg Documented by: Admin: 06/19/20 12:43 Dose: 1 mg Documented by: Admin: 06/19/20 10:31 Dose: 1 mg Documented by: Admin: 06/19/20 08:37 Dose: 1 mg Documented by: Admin: 06/19/20 06:30 Dose: 1 mg Documented by: NORMA Metronidazole (Flagyl) 500 mg in 100 mls @ 100 mls/hr IV Q8H [facility]; Protocol Last Admin: 06/24/20 13:37 Dose: 100 mls/hr Documented by: Infusion: 06/24/20 09:01 Dose: 0 mls/hr Documented by: Admin: 06/24/20 05:00 Dose: 100 mls/hr Documented by: Infusion: 06/24/20 00:05 Dose: 0 mls/hr Documented by: Admin: 06/23/20 21:01 Dose: 100 mls/hr Documented by: Infusion: 06/23/20 15:53 Dose: 100 mls/hr Documented by: Admin: 06/23/20 14:53 Dose: 100 mls/hr Documented by: Infusion: 06/23/20 07:01 Dose: 100 mls/hr Documented by: Admin: 06/23/20 06:01 Dose: 100 mls/hr Documented by: Infusion: 06/22/20 22:20 Dose: 0 mls/hr Documented by: Admin: 06/22/20 21:16 Dose: 100 mls/hr Documented by: Infusion: 06/22/20 14:30 Dose: 0 mls/hr Documented by: Admin: 06/22/20 13:27 Dose: 100 mls/hr Documented by: Infusion: 06/22/20 07:10 Dose: 0 mls/hr Documented by: Admin: 06/22/20 06:09 Dose: 100 mls/hr Documented by: Infusion: 06/21/20 22:41 Dose: 0 mls/hr Documented by: Admin: 06/21/20 21:41 Dose: 100 mls/hr Documented by: Infusion: 06/21/20 14:30 Dose: 0 mls/hr Documented by: Admin: 06/21/20 13:32 Dose: 100 mls/hr Documented by: Infusion: 06/21/20 07:00 Dose: 0 mls/hr Documented by: Admin: 06/21/20 06:30 Dose: 100 mls/hr Documented by: Infusion: 06/20/20 23:49 Dose: 0 mls/hr Documented by: Admin: 06/20/20 22:21 Dose: 100 mls/hr Documented by: Infusion: 06/20/20 14:36 Dose: 100 mls/hr Documented by: Admin: 06/20/20 13:36 Dose: 100 mls/hr Documented by: Infusion: 06/20/20 07:40 Dose: 0 mls/hr Documented by: Admin: 06/20/20 06:05 Dose: 100 mls/hr Documented by: Infusion: 06/19/20 23:35 Dose: 100 mls/hr Documented by: Admin: 06/19/20 22:35 Dose: 100 mls/hr Documented by: Infusion: 06/19/20 17:09 Dose: 0 mls/hr Documented by: Admin: 06/19/20 14:49 Dose: 100 mls/hr Documented by: Infusion: 06/19/20 08:00 Dose: 0 mls/hr Documented by: Admin: 06/19/20 05:36 Dose: 100 mls/hr Documented by: Admin: 06/19/20 03:07 Dose: Not Given Documented by: NORMA Ceftriaxone Sodium 2 gm/ (Dextrose) 50 mls @ 100 mls/hr IV Q24H [facility]; Protocol Last Admin: 06/24/20 08:19 Dose: 100 mls/hr Documented by: Infusion: 06/23/20 09:30 Dose: 0 mls/hr Documented by: Admin: 06/23/20 08:56 Dose: 100 mls/hr Documented by: Infusion: 06/22/20 09:40 Dose: 0 mls/hr Documented by: Admin: 06/22/20 09:10 Dose: 100 mls/hr Documented by: Infusion: 06/21/20 09:10 Dose: 0 mls/hr Documented by: Admin: 06/21/20 08:37 Dose: 100 mls/hr Documented by: Infusion: 06/20/20 10:30 Dose: 0 mls/hr Documented by: Admin: 06/20/20 09:12 Dose: 100 mls/hr Documented by: Infusion: 06/19/20 12:29 Dose: 0 mls/hr Documented by: Admin: 06/19/20 11:35 Dose: 100 mls/hr Documented by: JAY Lactobacillus Rhamnosus (Culturelle) 1 cap PO BID [facility] Last Admin: 06/24/20 08:27 Dose: 1 cap Documented by: Admin: 06/23/20 21:01 Dose: 1 cap Documented by: Admin: 06/23/20 08:55 Dose: 1 cap Documented by: Admin: 06/22/20 21:15 Dose: 1 cap Documented by: Admin: 06/22/20 09:03 Dose: 1 cap Documented by: Admin: 06/21/20 20:22 Dose: 1 cap Documented by: Admin: 06/21/20 08:38 Dose: 1 cap Documented by: Admin: 06/20/20 20:04 Dose: 1 cap Documented by: Admin: 06/20/20 09:13 Dose: 1 cap Documented by: Admin: 06/19/20 20:20 Dose: 1 cap Documented by: Admin: 06/19/20 10:17 Dose: Not Given Documented by: JAY Lisinopril (Zestril) 10 mg PO DAILY [facility] Admin: 06/24/20 08:28 Dose: 10 mg Documented by: Admin: 06/23/20 08:55 Dose: 10 mg Documented by: Admin: 06/22/20 09:05 Dose: 10 mg Documented by: Admin: 06/21/20 08:39 Dose: 10 mg Documented by: Admin: 06/20/20 09:13 Dose: 10 mg Documented by: Admin: 06/19/20 10:30 Dose: 10 mg Documented by: JAY Methocarbamol (Robaxin) 500 mg PO Q6 [facility] Admin: 06/24/20 11:45 Dose: 500 mg Documented by: Admin: 06/24/20 04:59 Dose: 500 mg Documented by: Admin: 06/23/20 23:41 Dose: 500 mg Documented by: Admin: 06/23/20 17:07 Dose: 500 mg Documented by: Admin: 06/23/20 11:55 Dose: 500 mg Documented by: Admin: 06/23/20 06:01 Dose: 500 mg Documented by: Admin: 06/22/20 23:57 Dose: 500 mg Documented by: Admin: 06/22/20 17:24 Dose: 500 mg Documented by: Admin: 06/22/20 12:19 Dose: 500 mg Documented by: Admin: 06/22/20 05:54 Dose: 500 mg Documented by: Admin: 06/22/20 00:05 Dose: 500 mg Documented by: Admin: 06/21/20 17:48 Dose: 500 mg Documented by: Admin: 06/21/20 11:27 Dose: 500 mg Documented by: Admin: 06/21/20 06:09 Dose: 500 mg Documented by: Admin: 06/21/20 00:31 Dose: 500 mg Documented by: Admin: 06/20/20 17:39 Dose: 500 mg Documented by: Admin: 06/20/20 12:18 Dose: 500 mg Documented by: Admin: 06/20/20 06:05 Dose: 500 mg Documented by: Admin: 06/20/20 00:16 Dose: 500 mg Documented by: Admin: 06/19/20 17:07 Dose: 500 mg Documented by: Admin: 06/19/20 14:20 Dose: Not Given Documented by: Admin: 06/19/20 05:19 Dose: Not Given Documented by: NORMA Metoclopramide HCl (Reglan) 10 mg IV Q6 [facility] Last Admin: 06/24/20 11:45 Dose: 10 mg Documented by: Admin: 06/24/20 05:00 Dose: 10 mg Documented by: Admin: 06/23/20 23:41 Dose: 10 mg Documented by: Admin: 06/23/20 17:07 Dose: 10 mg Documented by: Admin: 06/23/20 11:54 Dose: 10 mg Documented by: Admin: 06/23/20 06:01 Dose: 10 mg Documented by: Admin: 06/22/20 23:56 Dose: 10 mg Documented by: Admin: 06/22/20 17:24 Dose: 10 mg Documented by: Admin: 06/22/20 12:19 Dose: 10 mg Documented by: Admin: 06/22/20 05:54 Dose: 10 mg Documented by: Admin: 06/22/20 00:04 Dose: 10 mg Documented by: Admin: 06/21/20 17:48 Dose: 10 mg Documented by: Admin: 06/21/20 11:27 Dose: 10 mg Documented by: Admin: 06/21/20 06:11 Dose: 10 mg Documented by: Admin: 06/21/20 00:30 Dose: 10 mg Documented by: Admin: 06/20/20 17:39 Dose: 10 mg Documented by: YULIET Montelukast Sodium (Singular) 10 mg PO QPM [facility] Last Admin: 06/23/20 21:01 Dose: 10 mg Documented by: Admin: 06/22/20 21:15 Dose: 10 mg Documented by: Admin: 06/21/20 20:22 Dose: 10 mg Documented by: Admin: 06/20/20 20:04 Dose: 10 mg Documented by: Admin: 06/19/20 20:20 Dose: 10 mg Documented by: JONATHAN Ondansetron HCl (Zofran) 4 mg IV Q4HP PRN; Protocol PRN Reason: Nausea And Vomiting Last Admin: 06/19/20 20:36 Dose: 4 mg Documented by: Admin: 06/19/20 12:43 Dose: 4 mg Documented by: Admin: 06/19/20 08:37 Dose: 4 mg Documented by: JAY Oxcarbazepine [ Trileptal] 600 Mg Tab 1 dose PO BID [facility] Admin: 06/24/20 11:08 Dose: Not Given Documented by: Admin: 06/23/20 20:40 Dose: Not Given Documented by: Admin: 06/23/20 08:56 Dose: Not Given Documented by: Admin: 06/22/20 21:16 Dose: Not Given Documented by: Admin: 06/22/20 09:04 Dose: Not Given Documented by: Admin: 06/21/20 20:22 Dose: Not Given Documented by: Admin: 06/21/20 08:39 Dose: Not Given Documented by: Admin: 06/20/20 20:04 Dose: Not Given Documented by: Admin: 06/20/20 09:14 Dose: Not Given Documented by: Admin: 06/19/20 20:21 Dose: Not Given Documented by: Admin: 06/19/20 10:18 Dose: Not Given Documented by: JAY Polyethylene Glycol (Miralax) 17 gm PO DAILY [facility] Admin: 06/24/20 11:07 Dose: 17 gm Documented by: Admin: 06/23/20 08:56 Dose: 17 gm Documented by: Admin: 06/22/20 09:04 Dose: 17 gm Documented by: Admin: 06/21/20 08:38 Dose: 17 gm Documented by: Admin: 06/20/20 09:12 Dose: 17 gm Documented by: Admin: 06/19/20 10:18 Dose: Not Given Documented by: JAY Simvastatin (Zocor) 40 mg PO QPM [facility] Admin: 06/23/20 21:01 Dose: 40 mg Documented by: Admin: 06/22/20 21:15 Dose: 40 mg Documented by: Admin: 06/21/20 20:22 Dose: 40 mg Documented by: Admin: 06/20/20 20:05 Dose: 40 mg Documented by: Admin: 06/19/20 20:20 Dose: 40 mg Documented by: JONATHAN Tamsulosin HCl (Flomax) 0.4 mg PO QDAY [facility] Admin: 06/24/20 11:07 Dose: 0.4 mg Documented by: Admin: 06/23/20 08:55 Dose: 0.4 mg Documented by: Admin: 06/22/20 09:03 Dose: 0.4 mg Documented by: Admin: 06/21/20 08:38 Dose: 0.4 mg Documented by: Admin: 06/20/20 09:13 Dose: 0.4 mg Documented by: Admin: 06/19/20 10:17 Dose: Not Given Documented by: JAY Shift Summary 06/24/20 03:51 Shift Summary by Lorena Thompson Patient alert and orientedx4. Slept on and off this shift. Medicated with IV Dilaudid 1mg x3 for sharp, abdominal pain 4-5/10 with good effect. Up ad gilbert. Ambulated in hallway independently. Steady on his feet. IVF LR @75 mls infusing well on LFA. Tolerating GI soft diet. Midline incision- gauze and tegaderm in place. Old, marked shadow drainage under dressing no change. ABD binder in place. Voids to the bathroom. Had some loose, liquid stools twice this shift. Patient for possible discharge today. VSS. Initialized on 06/24/20 03:51 - END OF NOTE
== END 2020-06-24 16:53 | disposition home or self-care (01) | DRG 336 ==
LOC: MEDSUR 15:39 → ED 15:39 → OBSVTOIN 18:51 → MEDSUR 18:51
PROVIDERS: ADMIT Surgery; ATTEND Family Medicine Adult Medicine